=== PATIENT | female | born 1980 | race Caucasian/White ===

== ENCOUNTER 2016-12-09 19:21 | Emergency (ER) | payer BC ==
[2016-12-09 20:00] VITALS: BP 132/84
--- NOTE | 2016-12-09 20:16 | ED ---
Respiratory - HPI Summary HPI Summary: 35F presents with dry cough for 3 weeks. no sinus congestion. no fever. had history of childhood asthma. denies any acid reflux. no post nasal drip. cough is not getting any better and she gets SOB with it. she does not smoke. no history of CHF. no swelling in legs. no recent travel or on control. no chest pain. no abdominal pain, n/v. tried mucinex without relief. - History of Current Complaint Chief Complaint: UCRespiratory Stated Complaint: COUGH/CONGESTION Time Seen by Provider: 12/09/16 20:03 - Allergy/Home Medications Allergies/Adverse Reactions: Allergies Allergy/AdvReac Type Severity Reaction Status Date / Time No Known Allergies Allergy Verified 12/09/16 20:02 Home Medications: Home Medications Escitalopram (NF) [Lexapro 10 mg (NF)] 20 mg PO DAILY 12/09/16 [History Confirmed 12/09/16] buPROPion SR TAB* [Wellbutrin SR TAB*] 300 mg PO DAILY 12/09/16 [History Confirmed 12/09/16] PMH/Surg Hx/FS Hx/Imm Hx Endocrine/Hematology History: Denies: Hx Anticoagulant Therapy Respiratory History: Reports: Hx Asthma - childhood only - Surgical History Surgery Procedure, Year, and Place: cholecystectomy Infectious Disease History: Yes Infectious Disease History: Reports: Hx Shingles - 2012 Denies: Traveled Outside the [place] in Last 30 Days - Family History Known Family History: Positive: Respiratory Disease - Social History Alcohol Use: None Substance Use Type: Reports: None Smoking Status (MU): Never Smoked Tobacco Review of Systems Negative: Fever Negative: Chest Pain Positive: Shortness Of Breath, Cough All Other Systems Reviewed And Are Negative: Yes Physical Exam Triage Information Reviewed: Yes Vital Signs On Initial Exam: Initial Vitals Temp Pulse Resp BP Pulse Ox 98.2 F 86 18 132/84 100 12/09/16 19:55 12/09/16 19:55 12/09/16 19:55 12/09/16 19:55 12/09/16 19:55 Vital Signs Reviewed: Yes Appearance: Positive: Well-Appearing Skin: Positive: Warm, Dry Head/Face: Positive: Normal Head/Face Inspection Eyes: Positive: Normal, EOMI, CHASIDY, Conjunctiva Clear ENT: Positive: Normal ENT inspection, Pharynx normal, TMs normal Respiratory/Lung Sounds: Positive: Clear to Auscultation, Breath Sounds Present Cardiovascular: Positive: Normal, RRR Abdomen Description: Positive: Nontender, Soft Bowel Sounds: Positive: Present Musculoskeletal: Positive: Normal Neurological: Positive: Normal Psychiatric: Positive: Normal Diagnostics - Vital Signs Vital Signs Temp Pulse Resp BP Pulse Ox 12/09/16 19:55 98.2 F 86 18 132/84 100 - Laboratory Lab Statement: Any lab studies that have been ordered have been reviewed, and results considered in the medical decision making process. - Radiology chest Xray Interpretation: No Acute Changes Radiology Interpretation Completed By: Radiologist Disposition - Course Course Of Treatment: 35F presents with dry cough for 3 weeks. no sinus congestion. no fever. had history of childhood asthma. denies any acid reflux. no post nasal drip. cough is not getting any better and she gets SOB with it. she does not smoke. no history of CHF. no swelling in legs. no recent travel or on control. no chest pain. no abdominal pain, n/v. tried mucinex without relief. lungs CTA. chest xray normal. diff: GERD, bronchitis, CHF, asthma. will treat as bronchitis at this point and have follow up with primary about this and blood pressure being elevated. patient understands and agrees with plan. - Differential Dx - Cardiopulmonary Differential Diagnoses - Cardiopulmonary: Asthma, Bronchitis, CHF, Lower Resp Infection - Diagnoses Provider Diagnoses: Cough Discharge - Discharge Plan Condition: Good Disposition: HOME Prescriptions: Albuterol HFA INHALER* [Ventolin HFA Inhaler*] 1 puff INH Q6H PRN #1 mdi PRN Reason: Cough Patient Education Materials: Acute Cough (ED) Referrals: Jenn Ramírez MD [Primary Care Provider] - Additional Instructions: Take inhaler every 6 hours as needed for shortness of breath Start allergy medication such as zytrec once a day Follow up with primary within 7 days Return to urgent care if develop any new or worsening symptoms
--- NOTE | 2016-12-09 20:27 | RAD ---
INDICATION: Cough. Short of breath. COMPARISON: None TECHNIQUE: PA and lateral dual-energy views were obtained. FINDINGS: Bones/Soft Tissues: There are no acute bony findings. Cardiomediastinal: The cardiomediastinal silhouette is normal. Lungs: There are no infiltrates. Pleura: There are no pleural effusions. Other: None IMPRESSION: NEGATIVE EXAMINATION.
[2016-12-09] MEDS ORDERED: Albuterol HFA INHALER* 8 gm MDI INH ONE (20:40)
== END 2016-12-09 20:49 | disposition home or self-care (01) ==
LOC: UCCORT 19:21
DX: R05 Cough (principal)
CPT/HCPCS: 71020; 99202; A9270-GY; G0463

== ENCOUNTER 2017-07-07 08:34 | Emergency (ER) | payer BC ==
[2017-07-07 08:55] VITALS: BP 146/103
--- NOTE | 2017-07-07 09:11 | UC ---
Throat Pain/Nasal Luis Armando HPI - HPI Summary HPI Summary: Sore throat for about two days. Worse today. Mild cough. No fever or Strep throat/sick contacts. She has anxiety/depression but no medical problems. No hx of HTN. Generally at pcp office BP is controlled. No rashes, vomiting, nausea. - History of Current Complaint Chief Complaint: UCRespiratory Stated Complaint: ST Time Seen by Provider: 07/07/17 08:58 Hx Obtained From: Patient Hx Last Menstrual Period: 06/01/17 Onset/Duration: Gradual Onset, Lasting Days Severity: Moderate Pain Intensity: 6 Cough: Nonproductive Associated Signs & Symptoms: Positive: Dysphagia. Negative: Nasal Discharge, Fever, Vomiting, Rash - Epiglottits Risk Factors Epiglottis Risk Factors: Negative - Allergies/Home Medications Allergies/Adverse Reactions: Allergies Allergy/AdvReac Type Severity Reaction Status Date / Time No Known Allergies Allergy Verified 07/07/17 08:55 PMH/Surg Hx/FS Hx/Imm Hx Previously Healthy: No - depression, anxiety. Other History Of: Negative For: Anticoagulant Therapy - Surgical History Surgical History: Yes Surgery Procedure, Year, and Place: cholecystectomy - Family History Known Family History: Positive: Respiratory Disease - Social History Occupation: Employed Full-time Alcohol Use: None Substance Use Type: None Smoking Status (MU): Never Smoked Tobacco Review of Systems ENT: Sore Throat Respiratory: Cough All Other Systems Reviewed And Are Negative: Yes Physical Exam Triage Information Reviewed: Yes Appearance: Well-Appearing, Obese Vital Signs: Initial Vital Signs Temp 99.2 F 07/07/17 08:48 Pulse 94 07/07/17 08:48 Resp 18 07/07/17 08:48 BP 146/103 07/07/17 08:48 Pulse Ox 100 07/07/17 08:48 Vital Signs Reviewed: Yes Eyes: Positive: Conjunctiva Clear ENT: Positive: Normal ENT inspection, Pharyngeal erythema, TMs normal, Uvula midline. Negative: Nasal congestion, Nasal drainage, TM bulging, TM dull, TM red, Tonsillar swelling, Tonsillar exudate, Trismus, Muffled voice, Hoarse voice , Sinus tenderness Neck: Positive: Supple, Nontender, No Lymphadenopathy Respiratory: Positive: Chest non-tender, Lungs clear, Normal breath sounds, No respiratory distress, No accessory muscle use. Negative: Respiratory distress, Decreased breath sounds, Accessory muscle use, Crackles, Rhonchi, Stridor, Wheezing Cardiovascular: Positive: RRR, No Murmur, Pulses Normal Abdomen Description: Positive: Nontender, No Organomegaly, Soft. Negative: Distended, Guarding Musculoskeletal: Positive: Strength Intact, ROM Intact, No Edema Neurological: Positive: Alert, Muscle Tone Normal. Negative: Fatigued Skin: Negative: rashes Throat Pain/Nasal Course/Dx - Course Course Of Treatment: sore throat without any clinical findings of strep throat not any risk factors or variables of the history that suggest Strep throat. We agreed to treat supportively. HTn is not normally a problem for her. SHe agrees to f/u with pcp and to go to pharmacy and check a few BP and write them down for Pcp to review. Repeat BP now to be obtained. - Differential Dx/Diagnosis Differential Diagnosis/HQI/PQRI: Influenza, Laryngitis, Justen's Angina, Mononucleosis, Otitis Media, Peritonsillar Abscess, Pharyngitis, Sinusitis, Tonsillitis, URI Provider Diagnoses: htn. viral pharyngitis. Discharge - Sign-Out/Discharge Documenting (check all that apply): Discharge/Admit/Transfer - Discharge Plan Condition: Good Disposition: HOME Patient Education Materials: Chronic Hypertension (ED), Pharyngitis (ED) Forms: *Work Release Referrals: Jenn Ramírez MD [Primary Care Provider] - 1 Week - Billing Disposition and Condition Condition: GOOD Disposition: HOME
== END 2017-07-07 09:24 | disposition home or self-care (01) ==
LOC: UCCORT 08:34
DX: J02.8 Acute pharyngitis due to other specified organisms (principal); I10 Essential (primary) hypertension; E66.9 Obesity, unspecified; B97.89 Other viral agents as the cause of diseases classified elsewhere
CPT/HCPCS: 99211; G0463

== ENCOUNTER 2018-03-18 08:29 | Emergency (ER) | payer BC ==
--- OUTSIDE RECORDS SUMMARY | 2018-03-18 08:39 | XMS REPORT | Continuity of Care Document ---
:1980 External Reference #:[id number] Author Name Carolyn Rosa, FUNMI MS CHOIR DIRECTOR Address [address] [place] [address] Care Team Providers Name Role Phone Carolyn Rosa RN MS CHOIR DIRECTOR Care Team Information Mobile Application Tester Unavailable Payers Type Date Identification Numbers Payment Provider Subscriber Effective: 2011 Policy Number: [id number] Commercial Jonas Siddiqui PayID: [id number] [address] [address] [place] [address] Advance Directives Description No Information Available Problems Date Description Provider Status Onset: 08/04/2011 Blood chemistry abnormal Carolyn Rosa RN MS CHOIR DIRECTOR Active Onset: 08/04/2011 Morbid obesity Carolyn Rosa RN MS CHOIR DIRECTOR Active Onset: 08/04/2011 Vitamin D deficiency Carolyn Rosa RN MS CHOIR DIRECTOR Active Onset: 07/25/2014 Generalized anxiety disorder Jenn Esquivel MD Active Family History Date Family Member(s) Problem(s) Comments Father Hypercholesterolemia Father Hypertension Mother Good Health Paternal Grandmother Cancer, Breast Maternal Grandmother due to Cancer, Lung () Social History Type Date Description Comments Sex Unknown Marital Status 2 kids 2017 Occupation Homemaker Occupation Currently Working [employer] in [employer] Tobacco Use Start: Unknown Never Smoked Cigarettes ETOH Use Rarely consumes alcohol Tobacco Use Start: Unknown Patient has never smoked Smoking Status Reviewed: 02/17/18 Patient has never smoked Allergies, Adverse Reactions, Alerts Description No Known Drug Allergies Medications Medication Date Status Form Strength Qnty SIG Indications Ordering Provider Propranolol Active Tablets 20mg 60tabs take 1 I10 KLAUDIA Rosa 019 tablet by Carolyn Hayward, mouth two RN MS CHOIR DIRECTOR times daily Bupropion HCL Active Tablets 150mg 60tabs take 2 F32.1 Shelley, ER (XL) 019 ER 24HR tablet by Carolyn C, mouth every RN MS CHOIR DIRECTOR morning, gradually decrease to 1 a day as tolerated F33.9 [facility] 09/01/2017 Active Capsules 50-325-40mg 60caps take one G43.009 Shelley, to two Carolyn capsules C, RN MS by mouth CHOIR DIRECTOR three times a day as needed, for migraine , maximum daily dose=6 capsules Amlodipine Besylate 09/01/2017 Active Tablets 10mg 90tabs 1 by I10 Shelley, mouth Carolyn every day C, RN MS CHOIR DIRECTOR Cpap 07/15/2017 Active 9CM dx: deepthi ? Alvin, full face Jenn mask-ally Hewitt MD ew options Dental Evaluation 07/13/2017 Active for G47.33 Alvin, mad/oat Jenn Dx: MD Marcelina Severe deepthi, Duloxetine HCL 12/14/[address] 60mg 30caps Take One F41.1 Alvin, Part Capsule Jenn By Mouth MD Marcelina Every Day Alprazolam 07/25/2014 Hx Tablets 0.25mg 10tabs 1/2-1 by F41.1 Shelley, - mouth Carolyn 03/17/2018 three FUNMI Hayward MS times a CHOIR DIRECTOR day as needed anxiety/i nsomnia Vitamin D3 03/08/2014 Active Capsules 2000Unit 1 by E55.9 Alvin, mouth Jenn every day MD Marcelina Out Of Work 09/01/2017 Hx for G43.009 Shelley, - medical Carolyn 09/17/2017 reasons ( C, RN MS migraine) CHOIR DIRECTOR 08/31, 09/01, 09/02, may return to work on 09/03. to full duty Amitriptyline HCL 09/01/2017 Hx Tablets 50mg 90tabs take one G43.009 Shelley, - tablet by Carolyn 09/17/2017 mouth at C, RN MS bedtime CHOIR DIRECTOR Amlodipine Besylate 07/13/2017 Hx Tablets 5mg 30tabs 1 by I10 Alvin, - mouth Jenn 09/01/2017 every day MD Marcelina Amoxicillin 07/08/2017 Hx Tablets 500mg 21tabs 1 by Alvin, - mouth Jenn 07/08/2017 three MD Marcelina times a day Amoxicillin/Clavulanate 01/26/2017 Hx Tablets 875-125mg 20tabs 1 by Alvin Potassium - mouth Jenn 07/08/2017 twice a M, day Azithromycin 12/14/2016 Hx Tablets 250mg 6tabs 2 tabs R06.2 Alvin, - day one Jenn 01/22/2017 and 1 tab MD Marcelina daily till gone Duloxetine HCL 12/14/[address] 30mg 7caps 1 by F41.1 Alvin, - Part mouth Jenn 07/13/2017 every day MD Marcelina Bupropion HCL ER (XL) 12/17/2014 Hx Tablets 150mg 7tabs take one F32.1 Alvin, - ER 24HR tablet by Jenn 01/29/2015 mouth MD Marcelina every morning Amoxicillin 12/17/2014 Hx Tablets 875mg 20tabs 1 by J20.9 Alvin, - mouth Jenn 01/29/2015 twice a M, day Bupropion HCL ER (XL) 12/17/2014 Hx Tablets 300mg 30tabs take one F32.1 Alvin, - ER 24HR tablet by Jenn 02/17/2018 mouth MD Marcelina every day Cipro 09/17/2014 Hx Tablets 250mg 6tabs 1 by R35.0 Alvin, - mouth Jenn 12/17/2014 twice a M, day x 3 d Escitalopram Oxalate 07/25/2014 Hx Tablets 20mg 30tabs Take One F41.1 Alvin, - Tablet By Jenn 12/14/2016 Mouth MD Marcelina Every Day Pyridium 06/29/2014 Hx Tablets 100mg 30tabs 1 by 595.0 Alvin, - mouth Jenn 12/17/2014 three MD Marcelina times a day as needed Escitalopram Oxalate 06/29/2014 Hx Tablets 10mg 30tabs 1/2 po qd 300.02 Alvin, - x 4 d Jenn 07/25/2014 then by MD Marcelina mouth every day Vitamin D (Ergocalciferol) 03/08/2014 Hx Capsules [id number] 8caps 1 by Alvin - mouth qwk Jenn 06/29/2014 x 8 wks MD Marcelina Diflucan 01/17/2014 Hx Tablets 150mg 1tabs 1 by 616.10 [place], - mouth Jenn 07/25/2014 every day MD Marcelina Cipro 01/17/2014 Hx Tablets 250mg 6tabs 1 by 595.0 [place], - mouth Jenn 06/29/2014 twice a MD Marcelina day x 3 days No Active Medications 06/07/2013 Hx Unknown - 06/07/2013 Amoxicillin 06/07/2013 Hx Tablets 875mg 28tabs 1 po bid 461.0 Shelley, - Carolyn 01/19/2014 FUNMI Hayward MS CHOIR DIRECTOR Benadryl 06/07/2013 Hx Capsules 25mg 1-2 hs 786.2 Shelley, - prn Cough Carolyn 06/14/2013 FUNMI Hayward MS CHOIR DIRECTOR Famvir 04/14/2013 Hx Tablets 500mg 21tabs one tab 053.29 Shelley, - by mouth 06/07/2013 tid x 7 FUNMI Hayward MS days CHOIR DIRECTOR Lidoderm 04/14/2013 Hx Patches 5% Samples apply 053.29 Shelley, - patch Carolyn 06/07/2013 daily as FUNMI Hayward MS directed. CHOIR DIRECTOR leave on for 12 hours/day only. june cut to fit tender area. No Active Medications 04/12/2013 Hx Unknown - 04/14/2013 No Active Medications 03/16/2013 Hx Unknown - 03/16/2013 Cipro 03/16/2013 Hx Tablets 250mg 6tabs 1 po bid 599.0 Shelley, - x 3 days 04/12/2013 FUNMI Hayward MS CHOIR DIRECTOR Proair HFA 02/01/2013 Hx Aerosol 108(90Base) 1units 2 Shelley, - mcg/Act inhalatio Carolyn 03/16/2013 ns by FUNMI Hayward MS mouth tid CHOIR DIRECTOR as needed for wheezing No Work For Medical Reasons 02/01/2013 Hx all this Shelley, - week Carolyn 03/16/2013 FUNMI Hayward MS CHOIR DIRECTOR No Active Medications 01/25/2013 Hx Unknown - 01/25/2013 Amoxicillin 01/25/2013 Hx Tablets 875mg 20tabs 1 po bid 461.8 Shelley, - x ten 03/16/2013 days FUNMI Hayward MS CHOIR DIRECTOR No Active Medications 09/07/2012 Hx Unknown - 09/07/2012 Cephalexin 09/07/2012 Hx Tablets 500mg 30tabs 1 tid for 682.8 Shelley, - 10 days Carolyn 01/25/2013 C, RN MS CHOIR DIRECTOR Clarithromycin 05/17/2012 Hx Tablets 500mg 28tabs 1 po bid 461.0 [place], - x 14 d Jenn 09/07/2012 MD Marcelina Bactrim DS 01/29/2012 Hx Tablets 800-160mg 14tabs 1 po bid [place], - X 7 D Jenn 05/17/2012 MD Marcelina Ciprofloxacin HCL 01/25/2012 Hx Tablets 250mg 6tabs 1 po bid 599.0 [place], - Jenn 01/29/2012 MD Marcelina Nasonex 01/25/2012 Hx Suspensio 50mcg/Act 1Bottle 2 p bilat 381.81 [place], - n qd Jenn 09/07/2012 MD Marcelina Cipro 05/28/2011 Hx Tablets 250mg 6tabs 1 po bid 599.0 [place], - x 3 days Carolyn 06/07/2011 Yesy RN MS CHOIR DIRECTOR Ceftin 11/25/2009 Hx Tablets 500mg 42tabs 1 po bid [place], - Jenn 05/28/2011 MD Marcelina Work Note 11/18/2009 Hx pt june Macamariaa, - rtw 11/17 Jenn 11/29/2009 w/O MD Marcelina restricti ons Work Note 11/08/[address] excuse 784.0 [place], - from work Jenn 11/18/2009 until MD Marcelina 11/18 Ciprofloxacin HCL 06/13/2009 Hx Tablets 250mg 6tabs 1 po bid 599.0 Shelley, - till gone Carolyn 06/23/2009 Yesy, RN MS CHOIR DIRECTOR Amoxicillin 05/24/2009 Hx Tablets 875mg 20tabs 1 po bid 463 [place], - Jenn 06/13/2009 MD Marcelina Sulfamethoxazole-TMP DS 02/12/2009 Hx 1 PO bid 788.41 Shelley, - for 7 Carolyn 02/19/2009 days C RN MS CHOIR DIRECTOR Phenazopyridine HCL 02/12/2009 Hx 9units 1 tab PO 788.41 Shelley, - tid as Carolyn 02/12/2009 needed C RN MS for CHOIR DIRECTOR urinary pain Phenazopridine 02/12/2009 Hx 100 9units tid for Shelley, - urinary Carolyn 06/23/2009 pain C, RN MS CHOIR DIRECTOR Bactrim DS 11/28/2008 Hx Tablets 800-160mg 14tabs one tab 599.0 Shelley, - po bid Carolyn 12/18/2008 for 7 C, RN MS days CHOIR DIRECTOR Prilosec OTC 09/11/2008 Hx Tablets 20mg 30tabs 1 po qd 789.06 [place], - DR Jenn 10/01/2008 MD Marcelina Vitamin D 08/28/2008 Hx Capsules [id number] 8caps 1 po qwk Shelley, - x 8 wks Carolyn 05/24/2009 C, RN MS CHOIR DIRECTOR Vitamin D 08/28/2008 Hx Capsules 1000Unit 1 po qd [place], - Jenn 05/28/2011 MD Marcelina Sertraline HCL 08/27/2008 Hx Tablets 50mg 30tabs 1/2 po qd 296.32 [place], - x 6 d Jenn 09/11/2008 then 1 po MD Marcelina qd Xanax 08/27/2008 Hx Tablets 0.25mg 12tabs one 296.32 [place], - half-two [facility] 09/11/2008 po tid MD Marcelina prn anxiety Macrobid 01/06/2008 Hx Capsules 100mg 14caps 1 po bid 595.0 [place], - as dir Carolyn 03/01/2008 C, RN MS CHOIR DIRECTOR Amoxicillin 02/28/2007 Hx Tablets 875mg 20tabs 1 PO bid 461.0 [place], - Jenn 04/11/2007 MD Marcelina Cipro 01/13/2007 Hx Tablets 250mg 6tabs 1 PO bid 599.0 [place], - X 3 Days Carolyn 01/19/2007 C, RN MS CHOIR DIRECTOR Entex Pse 06/01/2006 Hx Tablets 600mg;120 mg 20tabs one tab 462 [place], - qd in am Carolyn 07/26/2006 for sinus C, RN MS congestio CHOIR DIRECTOR n Zithromycin 06/01/2006 Hx Tablets 250mg 6Tabs 2 tabs 462 [place], - day one, Carolyn 07/26/2006 one tab C, RN MS days 2-5 CHOIR DIRECTOR Cipro 05/10/2006 Hx Tablets 250mg 6tabs 1 po bid 599.0 [place], - Jenn 06/01/2006 MD Marcelina Z Pack 02/24/2006 Hx 1Pack as Dir 461.0 Addis Esquivel 05/10/2006 MD Marcelina Bactrim DS 11/11/2005 Hx Tablets 160mg;800 mg 14tabs 1 PO bid 599.0 Addis Rosa 11/25/2005 Yesy RN MS CHOIR DIRECTOR Zoloft 11/02/2005 Hx Tablets 75mg 30tabs 1 po qd Addis Esquivel 07/26/2006 MD Marcelina Anaprox DS 03/06/2005 Hx Tablets 550mg 60tabs 1 PO Q 12 [place], - HRS Mashelle 08/03/2005 , N.P. Flexeril 03/06/2005 Hx Tablets 10mg 30tabs 1 PO tid [place], - Mashelle 08/03/2005 , N.P. Immunizations CPT Code Status Date Vaccine Lot # [id number] Given 07/13/2017 Tdap (Adacel) Ages 7 And Above Only [id number] Given 02/12/2009 Influenza Virus Vaccine Pandemic Formulation - [id number] Given 02/12/2009 Administration Swine Flu Vaccine [id number] Refused 12/14/2016 Influenza Vac, Quadrivalent, Split, 0.5mL Dosage, Im Use Vital Signs Date Vital Result Comment 02/17/2018 7:42am Weight 267.00 lb Heart Rate 84 /min BP Systolic 131 mmHg BP Diastolic 89 mmHg Height 66.5 inches 5'6.50" BMI (Body Mass Index) 42.4 kg/m2 09/17/2017 1:21pm Weight 265.25 lb Heart Rate 72 /min BP Systolic 128 mmHg BP Diastolic 86 mmHg Height 66.5 inches 5'6.50" BMI (Body Mass Index) 42.2 kg/m2 09/01/2017 10:57am Weight 266.50 lb Heart Rate 86 /min BP Systolic 155 mmHg BP Diastolic 109 mmHg Height 66.5 inches 5'6.50" BMI (Body Mass Index) 42.4 kg/m2 07/13/2017 1:52pm Weight 268.00 lb Heart Rate 84 /min BP Systolic 150 mmHg BP Diastolic 110 mmHg Height 66.5 inches 5'6.50" BMI (Body Mass Index) 42.6 kg/m2 12/14/2016 4:03pm Weight 281.00 lb Heart Rate 56 /min BP Systolic 128 mmHg BP Diastolic 78 mmHg Height 66.5 inches 5'6.50" BMI (Body Mass Index) 44.7 kg/m2 01/29/2015 8:59am Weight 274.00 lb Heart Rate 60 /min BP Systolic 122 mmHg BP Diastolic 82 mmHg Height 66.5 inches 5'6.50" BMI (Body Mass Index) 43.6 kg/m2 12/17/2014 1:08pm Body Temperature 97.6 F Weight 275.00 lb Heart Rate 76 /min BP Systolic 126 mmHg BP Diastolic 86 mmHg Height 66.5 inches 5'6.50" BMI (Body Mass Index) 43.7 kg/m2 09/17/2014 1:04pm Weight 263.00 lb Heart Rate 80 /min BP Systolic 110 mmHg BP Diastolic 80 mmHg Height 66.5 inches 5'6.50" BMI (Body Mass Index) 41.8 kg/m2 07/25/2014 11:27am Weight 260.00 lb Heart Rate 76 /min BP Systolic 110 mmHg BP Diastolic 78 mmHg Height 66.5 inches 5'6.50" BMI (Body Mass Index) 41.3 kg/m2 06/29/2014 10:16am Weight 266.00 lb Heart Rate 64 /min BP Systolic 137 mmHg BP Diastolic 84 mmHg Height 66.5 inches 5'6.50" BMI (Body Mass Index) 42.3 kg/m2 03/06/2014 9:50am Body Temperature 97.3 F Weight 271.00 lb Heart Rate 68 /min BP Systolic 120 mmHg BP Diastolic 76 mmHg Height 66.5 inches 5'6.50" BMI (Body Mass Index) 43.1 kg/m2 01/17/2014 3:43pm Body Temperature 98.2 F Weight 271.25 lb Heart Rate 74 /min BP Systolic 129 mmHg BP Diastolic 91 mmHg Height 66.5 inches 5'6.50" BMI (Body Mass Index) 43.1 kg/m2 06/07/2013 2:11pm Body Temperature 97.4 F Weight 269.00 lb Heart Rate 76 /min BP Systolic 120 mmHg BP Diastolic 80 mmHg Height 66.5 inches 5'6.50" BMI (Body Mass Index) 42.8 kg/m2 04/14/2013 10:02am Heart Rate 67 /min BP Systolic 131 mmHg BP Diastolic 87 mmHg 04/12/2013 1:48pm Weight 267.00 lb Heart Rate 70 /min BP Systolic 131 mmHg BP Diastolic 82 mmHg 03/16/2013 2:32pm Weight 265.00 lb Heart Rate 73 /min BP Systolic 139 mmHg BP Diastolic 96 mmHg 01/25/2013 2:38pm Body Temperature 97.4 F Weight 260.00 lb Heart Rate 77 /min BP Systolic 128 mmHg BP Diastolic 88 mmHg 09/07/2012 10:21am Weight 261.00 lb Heart Rate 68 /min BP Systolic 121 mmHg BP Diastolic 80 mmHg Height 66.5 inches 5'6.50" BMI (Body Mass Index) 41.5 kg/m2 05/17/2012 8:07am Body Temperature 98.2 F Weight 264.00 lb Heart Rate 88 /min BP Systolic 114 mmHg BP Diastolic 88 mmHg Height 66.5 inches 5'6.50" BMI (Body Mass Index) 42.0 kg/m2 01/25/2012 11:51am Body Temperature 97.6 F Weight 264.00 lb Heart Rate 60 /min BP Systolic 120 mmHg BP Diastolic 62 mmHg 08/04/2011 1:17pm Weight 264.00 lb Heart Rate 82 /min BP Systolic 119 mmHg BP Diastolic 74 mmHg Height 66.5 inches 5'6.50" BMI (Body Mass Index) 42.0 kg/m2 05/28/2011 4:22pm Weight 264.00 lb Heart Rate 62 /min BP Systolic 120 mmHg BP Diastolic 76 mmHg 11/29/2009 3:26pm Weight 248.00 lb Heart Rate 80 /min BP Systolic 110 mmHg BP Diastolic 72 mmHg 11/08/2009 3:56pm Weight 249.00 lb Heart Rate 76 /min BP Systolic 116 mmHg BP Diastolic 82 mmHg 06/13/2009 9:56am Body Temperature 97.0 F Weight 257.00 lb Heart Rate 80 /min BP Systolic 132 mmHg BP Diastolic 82 mmHg 05/24/2009 1:38pm Weight 259.00 lb Heart Rate 72 /min BP Systolic 114 mmHg BP Diastolic 86 mmHg 02/12/2009 10:31am Body Temperature 97.7 F Weight 246.00 lb Heart Rate 69 /min BP Systolic 125 mmHg BP Diastolic 80 mmHg Urine Dipstick - Blood 1+ WBC Only Urine Dipstick - Protein NEGATIVE Urine Dipstick - Glucose NEGATIVE 11/28/2008 2:46pm Weight 238.00 lb Heart Rate 81 /min BP Systolic 128 mmHg BP Diastolic 85 mmHg 10/01/2008 4:44pm Weight 220.00 lb Heart Rate 64 /min BP Systolic 120 mmHg BP Diastolic 80 mmHg 09/11/2008 2:48pm Weight 226.00 lb Heart Rate 76 /min BP Systolic 110 mmHg BP Diastolic 68 mmHg 08/27/2008 9:18am Weight 222.00 lb Heart Rate 60 /min BP Systolic 120 mmHg BP Diastolic 80 mmHg 04/02/2008 5:22pm Weight 249.00 lb Heart Rate 80 /min BP Systolic 110 mmHg BP Diastolic 80 mmHg 02/23/2008 2:00pm Body Temperature 98.0 F Weight 249.00 lb Heart Rate 87 /min BP Systolic 150 mmHg BP Diastolic 81 mmHg 01/06/2008 12:31pm Body Temperature 96.7 F Weight 250.00 lb Heart Rate 80 /min BP Systolic 116 mmHg BP Diastolic 80 mmHg 09/30/2007 8:11am Weight 249.00 lb Heart Rate 80 /min BP Systolic 128 mmHg BP Diastolic 84 mmHg 05/30/2007 5:51pm Weight 251.00 lb Heart Rate 70 /min BP Systolic 119 mmHg BP Diastolic 78 mmHg 04/11/2007 6:00pm Weight 249.00 lb Heart Rate 66 /min BP Systolic 119 mmHg BP Diastolic 79 mmHg 02/28/2007 5:09pm Weight 247.00 lb Heart Rate 76 /min BP Systolic 120 mmHg BP Diastolic 80 mmHg 01/13/2007 9:43am Body Temperature 97.1 F Weight 243.00 lb Heart Rate 73 /min BP Systolic 143 mmHg BP Diastolic 80 mmHg 07/26/2006 4:06pm Weight 241.00 lb Heart Rate 60 /min BP Systolic 118 mmHg BP Diastolic 88 mmHg 06/01/2006 3:10pm Body Temperature 97.4 F Weight 243.00 lb Heart Rate 90 /min BP Systolic 112 mmHg BP Diastolic 82 mmHg 05/10/2006 6:21pm Body Temperature 97.0 F Weight 248.00 lb Heart Rate 72 /min BP Systolic 118 mmHg BP Diastolic 8 mmHg 02/24/2006 1:35pm Body Temperature 97.5 F Weight 243.00 lb Heart Rate 76 /min BP Systolic 118 mmHg BP Diastolic 80 mmHg 02/01/2006 5:35pm Weight 239.00 lb Heart Rate 64 /min BP Systolic 118 mmHg BP Diastolic 80 mmHg 11/11/2005 11:55am Body Temperature 97.7 F Weight 231.00 lb Heart Rate 70 /min BP Systolic 114 mmHg BP Diastolic 70 mmHg 11/02/2005 6:26pm Weight 230.00 lb Heart Rate 68 /min BP Systolic 110 mmHg BP Diastolic 78 mmHg 08/03/2005 5:47pm Weight 231.00 lb Heart Rate 76 /min BP Systolic 118 mmHg BP Diastolic 82 mmHg 03/06/2005 9:44am Body Temperature 97.4 F Weight 229.00 lb Heart Rate 68 /min BP Systolic 124 mmHg BP Diastolic 80 mmHg Results Test Date Facility Test Result H/L Range Note Laboratory test finding 07/13/2017 [facility] TSH 2.93 uIU/mL 0.35-4.94 1 Free T4 1.08 ng/dL 0.70-1.48 Vitamin D 25 Hydroxy 17 ng/mL Low 30-100 2 Magnesium 2.3 mg/dL 1.5-2.7 Ferritin 70.8 ng/ml 11.0-306.0 CBC With Auto Diff 07/13/2017 [facility] WBC 11.2 K/uL High 4.1-11.0 RBC 4.97 M/uL 4.00-5.40 Hemoglobin 15.4 gm/dL 12.0-16.0 Hematocrit 44.4 % 36.0-47.0 MCV 89.4 fL 80.0-97.0 MCH 31.0 pg 27.0-32.0 MCHC 34.7 g/dL 32.0-36.0 RDW 13.8 % 11.5-14.5 PLT Count 377 K/ul 140-400 MPV 8.4 FL 7.1-10.7 Neutrophil 62.1 % 35.0-75.0 Lymphocyte 29.5 % 16.0-52.0 Monocyte 5.5 % 2.0-10.0 Eosinophil 2.5 % 0.0-5.0 Basophil 0.4 % 0.0-4.0 Abs Neutrophils 6.9 K/uL 2.1-8.0 Abs Lymphocytes 3.3 K/uL 0.8-5.5 Abs Monocytes 0.6 K/uL 0.1-1.0 Abs Eosinophils 0.3 K/uL 0.0-0.5 Abs Basophils 0.0 K/uL 0.0-0.3 Comprehensive Met Panel-[facility] 07/13/2017 [facility] Sodium 141 mmol/L 135- 146 3 Potassium 3.7 mmol/L 3.5-5.2 Chloride# 104 mmol/L 97-110 4 Carbon Dioxide 23 mmol/L Low 24-34 Glucose 89 mg/dL 70-105 BUN 8 mg/dL 6-26 Creatinine 1.0 mg/dL 0.5-1.4 Calcium 9.8 mg/dL 8.5-10.2 Total Protein 7.5 g/dL 6.0-8.0 Albumin 4.6 g/dL 3.6-4.9 Globulin 2.9 g/dL 2.0-3.5 A/G Ratio 1.6 Ratio 1.0-2.2 Total Bilirubin 0.8 mg/dL 0.1-1.3 Alkaline Phosphatase 131 U/L 24-140 Alt 43 U/L High 3-42 Ast 32 U/L 8-42 Cindy Egfr >60 >60 5 Non Cindy Egfr >60 >60 6 Anion Gap 14 mmol/L 5-15 7 Lipid [facility] Cholesterol 184 mg/dL 50-199 Triglycerides 168 mg/dL 30-200 HDL 42 mg/dL 35-85 8 Chol/ HDL Ratio 4.4 ratio 3.7-5.6 VLDL 34 mg/dL High 2-29 LDL (Calc) 109 mg/dL High 20-99 9 Laboratory test finding 01/29/2015 [facility] Ferritin 23.0 ng/ml 11.0- 306.0 Vit D,25 Hydroxy 34 ng/mL 31-100 Hepatitis Prof Acute-RL 01/29/2015 [facility] Hep[facility] B S Ag @ NEGATIVE ( Neg) Hep. B Core Igm @ NEGATIVE (Neg) Hepatitis A AB Igm @ NEGATIVE (Neg) Hepatitis C AB @ NEGATIVE (Neg) 10 CBC With Auto Diff 01/29/2015 [facility] WBC 7.5 K/uL 4.1-11.0 RBC 4.57 M/uL 4.00-5.40 Hemoglobin 13.9 gm/dL 12.0-16.0 Hematocrit 41.5 % 36.0-47.0 MCV 90.9 fL 80.0-97.0 MCH 30.3 pg 27.0-32.0 MCHC 33.4 g/dL 32.0-36.0 RDW 14.5 % 11.5-14.5 PLT Count 283 K/ul 140-400 Neutrophil 59.6 % 35.0-75.0 Lymphocyte 31.4 % 16.0-52.0 Monocyte 5.2 % 2.0-10.0 Eosinophil 2.8 % 0.0-5.0 Basophil 1.0 % 0.0-4.0 Abs Neutrophils 4.4 K/uL 2.1-8.0 Abs Lymphocytes 2.3 K/uL 0.8-5.5 Abmon 0.4 K/uL 0.1-1.0 Abs Eosinophils 0.2 K/uL 0.0-0.5 Abs Basophils 0.1 K/uL 0.0-0.3 Comprehensive Metabolic (CMP) 01/29/2015 [facility] Sodium 136 mmol/L 134- 142 Potassium 4.6 mmol/L 3.5-5.2 Chloride 104 mmol/L 97-109 Carbon Dioxide 25 mmol/L 24-34 Glucose 79 mg/dL 70-105 BUN 9 mg/dL 6-26 Creatinine 0.9 mg/dL 0.5-1.4 Calcium 9.4 mg/dL 8.5-10.2 Total Protein 6.9 g/dL 6.0-8.0 Albumin 4.1 g/dL 3.6-4.9 Globulin 2.8 g/dL 2.0-3.5 A/G Ratio 1.5 Ratio 1.0-2.2 Total Bilirubin 0.6 mg/dL 0.1-1.3 Alkaline Phosphatase 115 U/L 24-140 Alt 19 U/L 3-42 Ast 20 U/L 8-42 Anion Gap 12 mmol/L 6-14 Cindy Egfr >60 >60 11 Non Cindy Egfr >60 >60 12 Lipid 01/29/2015 [facility] Cholesterol 165 mg/dL 50-199 Triglycerides 123 mg/dL 30-200 HDL 39 mg/dL 35-85 13 Chol/ HDL Ratio 4.2 ratio 3.7-5.6 VLDL 25 mg/dL 2-29 LDL (Calc) 101 mg/dL High 20-99 14 CBC With Auto Diff 07/25/2014 [facility] WBC 8.5 K/uL 4.1-11.0 RBC 4.72 M/uL 4.00-5.40 Hemoglobin 14.0 gm/dL 12.0-16.0 Hematocrit 41.6 % 36.0-47.0 MCV 88.1 fL 80.0-97.0 MCH 29.7 pg 27.0-32.0 MCHC 33.7 g/dL 32.0-36.0 RDW 13.2 % 11.5-14.5 PLT Count 319 K/ul 140-400 Neutrophil 65.0 % 35.0-75.0 Lymphocyte 25.0 % 16.0-52.0 Monocyte 7.9 % 2.0-10.0 Eosinophil 1.3 % 0.0-5.0 Basophil 0.8 % 0.0-4.0 Abs Neutrophils 5.5 K/uL 2.1-8.0 Abs Lymphocytes 2.1 K/uL 0.8-5.5 Abmon 0.7 K/uL 0.1-1.0 Abs Eosinophils 0.1 K/uL 0.0-0.5 Abs Basophils 0.1 K/uL 0.0-0.3 Comprehensive Metabolic (CMP) 07/25/2014 [facility] Sodium 140 mmol/L 134- 142 Potassium 4.7 mmol/L 3.5-5.2 Chloride 105 mmol/L 97-109 Carbon Dioxide 26 mmol/L 24-34 Glucose 84 mg/dL 70-105 BUN 8 mg/dL 6-26 Creatinine 0.9 mg/dL 0.5-1.4 Calcium 9.5 mg/dL 8.5-10.2 Total Protein 7.0 g/dL 6.0-8.0 Albumin 4.4 g/dL 3.6-4.9 Globulin 2.6 g/dL 2.0-3.5 A/G Ratio 1.7 Ratio 1.0-2.2 Total Bilirubin 0.9 mg/dL 0.1-1.3 Alkaline Phosphatase 99 U/L 24-140 Alt 60 U/L High 3-42 Ast 28 U/L 8-42 Anion Gap 14 mmol/L 6-14 Cindy Egfr >60 >60 15 Non Cindy Egfr >60 >60 16 Laboratory test finding 07/25/2014 [facility] TSH 2.58 uIU/mL 0.35-4.94 Free T4 0.89 ng/dL 0.70-1.48 Vit D,25 Hydroxy 30 ng/mL Low 31-100 Rout Urine W/ Micro -RL 06/29/2014 [facility] Color YELLOW Appearance CLEAR Spec Grav Urine 1.023 (1.003-1.030) PH Urine 6.5 (5.0-7.5) Leuk Esterase 2+ Abnormal (Neg) Nitrite Urine NEGATIVE (Neg) Protein Urine NEGATIVE (Neg) Glucose Urine NEGATIVE (Neg) Ketone Urine NEGATIVE (Neg) Urobilinogen 0.2 mg/dL (0-1.0) Bilirubin Urine NEGATIVE (Neg) Blood/HGB Urine 3+ Abnormal (Neg) Urine WBC 0-2 [HPF] (0-5) Urine RBC 0-2 [HPF] (0-2) Epithelial Cells 3+ [HPF] 17 Laboratory test 06/29/2014 [facility] Urine Culture Microbiology res 18 finding <SEE NOTE> Affirm 06/29/2014 [facility] Trichomonas Negative Negative Vaginalis Gardnerella Vaginalis Negative Negative Kailyn Species Negative Negative Basic (BMP) 03/06/2014 [facility] Sodium 138 mmol/L 134-142 Potassium 4.4 mmol/L 3.5-5.2 Chloride 105 mmol/L 97-109 Carbon Dioxide 27 mmol/L 24-34 Glucose 93 mg/dL 70-105 BUN 6 mg/dL 6-26 Creatinine 0.9 mg/dL 0.5-1.4 Calcium 9.3 mg/dL 8.5-10.2 Anion Gap 10 mmol/L 6-14 Non Cindy Egfr >60 >60 19 Cindy Egfr >60 >60 20 CBC With Auto Diff 03/06/2014 [facility] WBC 7.9 K/uL 4.1-11.0 RBC 4.85 M/uL 4.00-5.40 Hemoglobin 14.5 gm/dL 12.0-16.0 Hematocrit 43.2 % 36.0-47.0 MCV 89.1 fL 80.0-97.0 MCH 29.8 pg 27.0-32.0 MCHC 33.4 g/dL 32.0-36.0 RDW 14.4 % 11.5-14.5 PLT Count 274 K/ul 140-400 Neutrophil 63.9 % 35.0-75.0 Lymphocyte 29.4 % 16.0-52.0 Monocyte 4.6 % 2.0-10.0 Eosinophil 1.5 % 0.0-5.0 Basophil 0.6 % 0.0-4.0 Abs Neutrophils 5.0 K/uL 2.1-8.0 Abs Lymphocytes 2.3 K/uL 0.8-5.5 Abmon 0.4 K/uL 0.1-1.0 Abs Eosinophils 0.1 K/uL 0.0-0.5 Abs Basophils 0.0 K/uL 0.0-0.3 Laboratory test finding 03/06/2014 [facility] Ferritin 31.7 ng/ml 11.0- 306.0 Vit D,25 Hydroxy 23 ng/mL Low 31-100 Urine Culture Microbiology res <SEE NOTE> 21 Affirm 01/17/2014 [facility] Trichomonas Vaginalis Negative Negative Gardnerella Vaginalis Negative Negative Kailyn Species Negative Negative Affirm 03/16/2013 [facility] Trichomonas Vaginalis Negative Negative 22 Gardnerella Vaginalis Negative Negative Kailyn Species Negative Negative Laboratory test 03/16/2013 [facility] Urine Culture Microbiology res 23 finding <SEE NOTE> Celiac Disease 09/07/2012 [facility] Gliadin Peptide 5 units (<20) 24 Panel-RL Iga Gliadin Peptide Igg 4 units (<20) 25 Iga @ 235 mg/dL (71-374) Transglutaminase Iga 6 units (<20) 26 Transglutaminase Igg 4 units (<20) 27 Laboratory test 09/07/2012 [facility] Vit D,25 42 ng/mL 31-100 finding Hydroxy Laboratory test 01/25/2012 [facility] Urine Culture Microbiology res 28 finding <SEE NOTE> Laboratory test 08/04/2011 [facility] Urine Culture Microbiology res 29 finding <SEE NOTE> Laboratory test 08/04/2011 [facility] TSH 2.76 uIU/mL 0.34-5.60 finding Comprehensive 08/04/2011 [facility] Sodium 139 mmol/L 134-142 Metabolic (CMP) Potassium 4.4 mmol/L 3.5-5.2 Chloride 104 mmol/L 97-109 Carbon Dioxide 25 mmol/L 24-34 Glucose 90 mg/dL 70-105 BUN 9 mg/dL 6-26 Creatinine 1.0 mg/dL 0.5-1.4 Calcium 9.4 mg/dL 8.5-10.2 Total Protein 7.2 g/dL 6.0-8.0 Albumin 4.5 g/dL 3.6-4.9 Globulin 2.7 g/dL 2.0-3.5 A/G Ratio 1.7 Ratio 1.0-2.2 Total Bilirubin 0.6 mg/dL 0.1-1.3 Alkaline Phosphatase 115 U/L 24-140 Alt 22 U/L 3-42 Ast 22 U/L 8-42 Anion Gap 14 mmol/L 6-14 Cindy Egfr >60 >60 30 Non Cindy Egfr >60 >60 31 Laboratory test finding 08/04/2011 [facility] Ferritin 31.3 ng/ml 11.0- 306.0 Lipid 08/04/2011 [facility] Cholesterol 135 mg/dL 50-199 Triglycerides 111 mg/dL 30-200 HDL 38 mg/dL 35-85 32 Chol/ HDL Ratio 3.6 ratio Low 3.7-5.6 VLDL 22 mg/dL 2-29 LDL (Calc) 75 mg/dL 20-129 33 CBC With Auto Diff 08/04/2011 [facility] WBC 9.5 K/uL 4.1-11.0 RBC 4.70 M/uL 4.00-5.40 Hemoglobin 14.1 gm/dL 12.0-16.0 Hematocrit 40.9 % 36.0-47.0 MCV 86.9 fL 80.0-97.0 MCH 29.9 pg 27.0-32.0 MCHC 34.4 g/dL 32.0-36.0 RDW 13.8 % 11.5-14.5 PLT Count 265 K/ul 140-400 Neutrophil 63.3 % 35.0-75.0 Lymphocyte 28.2 % 16.0-52.0 Monocyte 5.4 % 2.0-10.0 Eosinophil 2.3 % 0.0-5.0 Basophil 0.8 % 0.0-4.0 Abs Neutrophils 6.0 K/uL 2.1-8.0 Abs Lymphocytes 2.7 K/uL 0.8-5.5 Abs Monocytes 0.5 K/uL 0.1-1.0 Abs Eosinophils 0.2 K/uL 0.0-0.5 Abs Basophils 0.1 K/uL 0.0-0.3 Laboratory test 05/28/2011 [facility] Urine Culture Microbiology res 34 finding <SEE NOTE> CMP 11/11/2009 [facility] (Do not Use) Sodium 138 mmol/L 135-1 35 [facility] [address] [place] [address] [phone] Potassium 4.5 mmol/L 3.6-5.2 36 Chloride 104 mmol/L 97-110 Carbon Dioxide 28 mmol/L 23-32 Glucose 94 mg/dL 70-105 BUN 7 mg/dL 6-22 Creatinine 1.0 mg/dL 0.5-1.3 BUN/CR 7 Ratio Calcium 9.2 mg/dL 8.6-10.2 Total Protein 6.8 g/dL 5.8-7.8 Albumin 3.9 g/dL 3.5-4.8 Globulin 2.9 g/dL 2.0-3.5 A/G Ratio 1.3 Ratio 1.0-2.2 Total Bilirubin 1.1 mg/dL 0.3-1.2 Alkaline Phosphatase 116 U/L 24-140 Alt 23 U/L 5-45 Ast 22 U/L 12-40 Anion Gap 11 mmol/L 8-16 GFR Calculation > 60 mL/min 60-175 37 GFR For > 60 mL/min 60-175 38 CBC With Auto Diff 11/11/2009 [facility] (Do not Use) WBC 7.3 K/ul 4.0- 10.9 [facility] [place] [address] [phone] RBC 4.68 M/ul 4.20-5.40 Hemoglobin 14.4 GM/dl 12.5-16.0 Hematocrit 41.2 % 36.0-47.0 MCV 88.0 FL 80.0-97.0 MCH 30.6 pg 27.0-31.0 MCHC 34.8 g/dL 32.0-36.0 RDW 13.6 % 11.5-14.5 Platelet Count 247 K/ul 140-440 Neutrophils 66.1 % 50-70 Lymphocytes 23.3 % 20-44 Monocytes 8.1 % 2-9 Eosinophil 1.8 % 0-4 Basophil 0.7 % 0-2 Absolute Neutrophils 4.9 K/ul 2.05-7.63 Absolute Lymphocytes 1.7 K/ul 0.8-4.8 Absolute Monocytes 0.6 K/ul 0.1-1.0 Absolute Eosinophils 0.1 K/ul 0.1-0.5 Absolute Basophils 0.0 K/ul 0.0-0.3 Hematology Comment (Comm2) N/A Laboratory 06/14/2009 [facility] (Do not Use) Urine <10,000 39, 40 test finding [facility] Culture CFU/[place] [address] <SEE NOTE> [phone] Laboratory 02/12/2009 [facility] (Do not Use) Urine NO GROWTH 41 test finding [facility] [place] [address] [phone] Laboratory 02/12/2009 [facility] (Do not Use) Vitamin D, 23 ng/mL Low 31 -1 test finding [facility] 25 Hydroxy 00 [place], [place] [id number] [phone] Laboratory 11/28/2008 [facility] (Do not Use) Urine >100,000 Abnormal 42 test finding [facility] Culture CFU/[place] [address] <SEE NOTE> [phone] Preliminary Ur. Culture Result GRAM NEGATIVE RO <SEE NOTE> Abnormal 43 Gram Negative 11/28/2008 [facility] (Do not Use) Ampicillin (Am) SENSITIVE Sensitivity [facility] [place], [place] [id number] [phone] Ampicillin/Sulbactam (Remi) SENSITIVE Cefazolin (CZ) SENSITIVE Ceftriaxone ([employer] SENSITIVE Ciprofloxacin (Cip) SENSITIVE Nitrofurantoin (FT) SENSITIVE Trimethoprim/Sulfamethoxazole (SXT) SENSITIVE Laboratory test 11/23/2008 [facility] Pathology Exam ( SEE NOTE) 44 finding (449)- - CMP 09/05/2008 [facility] Glucose 102 mg/dL 76-115 (315)- - BUN 6 mg/dL 5-23 Creatinine 1.1 mg/dL 0.5-1.4 Glom Filtration Rate, Estimate >60 mL/min >60 If >60 mL/min >60 45 BUN/Creat 5.4 Sodium 141 mEq/L 136-145 Potassium 3.1 mEq/L Low 3.5-5.1 Chloride 105 mEq/L 98-107 Carbon Dioxide 26 mEq/L 21-32 Anion Gap 13 mEq/L 8-16 Calcium 9.4 mg/dL 8.5-10.1 Total Protein 7.9 g/dL 6.3-8.0 Albumin 4.1 g/dL 3.5-5.0 Globulin 3.8 gm/dL 1.9-4.3 Alb/Glob 1.1 Bilirubin,Total 0.8 mg/dL 0.2-1.2 Sgot/Ast 28 U/L 16-40 SGPT/Alt 36 U/L 30-65 Alkaline Phosphatase 195 U/L High 50-136 Laboratory test finding 09/05/2008 [facility] CK 143 U/L 26-190 (315)- - Troponin-I 0.0 NG/ML 0.0-0.6 46 CBC W/Automated Diff 09/05/2008 [facility] White Blood 9.2 K/uL 3.1-10.7 (315)- - Count Red Blood Count 4.86 M/uL 3.90-5.40 Hemoglobin 14.7 gm/dL 11.6-15.8 Hematocrit 42.7 % 36.0-46.1 Mean Cell Volume 87.9 fl 80.9-99.0 Mean Corpuscular HGB 30.2 pg 25.9-32.7 Mean Corpuscular HGB Conc 34.4 g/dL High 30.8-34.3 Platelet Count 276 K/uL 155-360 Red Cell Distri Width %CV 12.6 % 11.7-14.4 Mean Platelet Volume 11.0 fL 8.9-12.4 Neut% 69.0 % 40.4-72.8 Lymph % 24.3 % 17.0-46.1 Wells % 5.7 % 4.3-13.2 Eo% 0.9 % 0.0-6.6 Bas% 0.1 % 0.0-1.1 Neut# 6.4 K/uL 1.0-7.0 Lymph # 2.2 K/uL 0.8-3.4 Wells # 0.5 K/uL 0.3-0.9 Eos # 0.1 K/uL 0.0-0.5 Baso # 0.0 K/uL 0.0-0.1 Red Cell Distri Width SD 40 fl 3-47 Laboratory test 09/05/2008 [facility] D-Dimer, 0.28 ug/ mL 47 finding (315)- - Quantitative HCG Serum, Qualitative NEGATIVE Urine Screen DNR 48 Laboratory test 08/27/2008 [facility] (Do not Use) Ferritin 16.7 ng/ml 11-306 49 finding [facility] [place] [address] [phone] TSH 1.08 uIU/ml 0.34-5.60 Free T4 0.77 ng/dL 0.50-1.60 Vitamin D, 25 Hydroxy 28 ng/mL Low 31-100 CBC With Auto Diff 08/27/2008 [facility] (Do not Use) WBC 6.5 K/ul 4.0- 10.9 [facility] [place] [address] [phone] RBC 4.73 M/ul 4.20-5.40 Hemoglobin 14.6 GM/dl 12.5-16.0 Hematocrit 42.1 % 36.0-47.0 MCV 89.0 FL 80.0-97.0 MCH 31.0 pg 27.0-31.0 MCHC 34.8 g/dL 32.0-36.0 RDW 13.3 % 11.5-14.5 Platelet Count 280 K/ul 140-440 Neutrophils 63.2 % 50-70 Lymphocytes 29.1 % 20-44 Monocytes 6.1 % 2-9 Eosinophil 0.8 % 0-4 Basophil 0.8 % 0-2 Absolute Neutrophils 4.1 K/ul 2.05-7.63 Absolute Lymphocytes 1.9 K/ul 0.8-4.8 Absolute Monocytes 0.4 K/ul 0.1-1.0 Absolute Eosinophils 0.1 K/ul 0.1-0.5 Absolute Basophils 0.1 K/ul 0.0-0.3 Hematology Comment (Comm2) N/A Laboratory test 05/28/2008 [facility] Urine Culture NO GROWTH: 50 finding (315)- - FINAL <SEE NOTE> CBC With Auto 04/03/2008 [facility] (Do not Use) WBC 10.7 K/ul 4.0-10 51 Diff [facility] .[address] [place] [address] [phone] RBC 4.14 M/ul Low 4.20-5.40 Hemoglobin 13.5 GM/dl 12.5-16.0 Hematocrit 38.6 % 36.0-47.0 MCV 93.2 FL 80.0-97.0 MCH 32.6 pg High 27.0-31.0 MCHC 35.0 g/dL 32.0-36.0 RDW 14.5 % 11.5-14.5 Platelet Count 248 K/ul 140-440 Neutrophils 72.4 % High 50-70 Lymphocytes 20.9 % 20-44 Monocytes 5.1 % 2-9 Eosinophil 1.1 % 0-4 Basophil 0.5 % 0-2 Absolute Neutrophils 7.7 K/ul High 2.05-7.63 Absolute Lymphocytes 2.2 K/ul 0.8-4.8 Absolute Monocytes 0.5 K/ul 0.1-1.0 Absolute Eosinophils 0.1 K/ul 0.1-0.5 Absolute Basophils 0.0 K/ul 0.0-0.3 Hematology Comment (Comm2) N/A Laboratory test 04/03/2008 [facility] (Do not Use) Ferritin 30.0 ng/ml 11-306 [place] [address] [phone] Iron Panel 04/03/2008 [facility] (Do not Use) Iron, Total 119 g/dL 28 -170 [place] [address] [phone] Transferrin 277 mg/dL 192-382 Tibc (Calc) 388 g/dL 261-478 % Saturation (Calc) 30.7 % 13.0-45.0 Basic (BMP) 04/03/2008 [facility] (Do not Use) Sodium 139 mmol/L 135- 144 [place] [address] [phone] Potassium 3.4 mmol/L Low 3.6-5.2 52 Chloride 106 mmol/L 97-110 Carbon Dioxide 21 mmol/L Low 23-33 Glucose 63 mg/dL Low 70-105 BUN 3 mg/dL Low 6-22 Creatinine 0.6 mg/dL 0.5-1.3 BUN/CR 5 Ratio Low 12.0-20.0 Anion Gap 15 mmol/L 8-16 Calcium 9.1 mg/dL 8.6-10.2 53 GFR Calculation > 60 mL/min 54 GFR For > 60 mL/min 55 Urine Microscopic 02/23/2008 [facility] (Do not Use) Urine WBC -LA 3-5 / HPF (0-5) 56 [place] [address] [phone] Urine RBC -LA 0-2 /HPF (0-2) Epithelial Cells -LA 2+ /HPF Abnormal Bacteria -LA 1+ /HPF Abnormal Mucus -LA N/A /HPF Comment -LA N/A Comment -LA N/A Amorphous 4+ /HPF Caox Crystals 1+ /HPF 57 Laboratory test 02/23/2008 [facility] (Do not Use) Urine [place] [address] [phone] Laboratory test 01/06/2008 [facility] (Do not Use) Urine [place] [address] [phone] CMP 09/22/2007 [facility] (Do not Use) Sodium 136 mmol/L 135-[address] [address] [phone] Potassium 4.6 mmol/L 3.6-5.2 Chloride 103 mmol/L 97-110 Carbon Dioxide 24 mmol/L 23-33 Glucose 80 mg/dL 70-105 BUN 9 mg/dL 6-22 Creatinine 0.8 mg/dL 0.5-1.3 BUN/CR 11 Ratio Low 12.0-20.0 Calcium 9.5 mg/dL 8.6-10.2 Total Protein 6.6 g/dL 5.8-7.8 Albumin 3.9 g/dL 3.5-4.8 Globulin 2.7 g/dL 2.0-3.5 A/G Ratio 1.4 Ratio 1.0-2.2 Total Bilirubin 0.8 mg/dL 0.3-1.2 Alkaline Phosphatase 105 U/L 24-140 Alt 19 U/L 4-45 Ast 21 U/L 12-40 Anion Gap 14 mmol/L 8-16 GFR Calculation > 60 mL/min 59 GFR For > 60 mL/min 60 Laboratory test 09/22/2007 [facility] (Do not Use) Ferritin 22.2 ng/ml 11-306 finding [facility] [place] [address] [phone] CBC With Auto Diff 09/22/2007 [facility] (Do not Use) WBC 8.7 K/ul 4.0- 10.9 [facility] [place] [address] [phone] RBC 4.63 M/ul 4.20-5.40 Hemoglobin 13.9 GM/dl 12.5-16.0 Hematocrit 41.0 % 36.0-47.0 MCV 88.6 FL 80.0-97.0 MCH 30.0 pg 27.0-31.0 MCHC 33.9 g/dL 32.0-36.0 RDW 13.0 % 11.5-14.5 Platelet Count 254 K/ul 140-440 Neutrophils 64.2 % 50-70 Lymphocytes 27.8 % 20-44 Monocytes 6.5 % 2-9 Eosinophil 1.0 % 0-4 Basophil 0.5 % 0-2 Absolute Neutrophils 5.6 K/ul 2.05-7.63 Absolute Lymphocytes 2.4 K/ul 0.8-4.8 Absolute Monocytes 0.6 K/ul 0.1-1.0 Absolute Eosinophils 0.1 K/ul 0.1-0.5 Absolute Basophils 0.0 K/ul 0.0-0.3 Lipid Panel 09/22/2007 [facility] (Do not Use) Cholesterol 144 mg/dL 50 -199 [facility] [place] [address] [phone] Triglycerides 71 mg/dL 10-150 HDL 40 mg/dL 35-85 61 Chol/HDL Ratio 3.6 Ratio 62 VLDL 14 mg/dL LDL (Calc) 90 mg/dL 20-129 63 CBC With Auto Diff 03/29/2007 [facility] (Do not Use) WBC 7.4 K/ul 4.0- 10.9 64 [facility] [place] [address] [phone] RBC 4.71 M/ul 4.20-5.40 Hemoglobin 14.3 GM/dl 12.5-16.0 Hematocrit 42.0 % 36.0-47.0 MCV 89.1 FL 80.0-97.0 MCH 30.3 pg 27.0-31.0 MCHC 34.0 g/dL 32.0-36.0 RDW 11.7 % 11.5-14.5 Platelet Count 274 K/ul 140-440 Neutrophils 66.2 % 50-70 Lymphocytes 26.2 % 20-44 Monocytes 5.6 % 2-9 Eosinophil 2.0 % 0-4 Basophil 0.0 % 0-2 Absolute Neutrophils 5.0 K/ul 2.05-7.63 Absolute Lymphocytes 1.9 K/ul 0.8-4.8 Absolute Monocytes 0.4 K/ul 0.1-1.0 Absolute Eosinophils 0.1 K/ul 0.1-0.5 Absolute Basophils 0.0 K/ul Low 0.1-0.3 CMP 03/29/2007 [facility] (Do not Use) Sodium 138 mmol/L 135-144 [facility] [place] [address] [phone] Potassium 4.3 mmol/L 3.6-5.2 Chloride 104 mmol/L 97-110 Carbon Dioxide 29 mmol/L 23-33 Glucose 89 mg/dL 70-105 BUN 7 mg/dL 6-22 Creatinine 1.0 mg/dL 0.5-1.3 BUN/CR 7 Ratio Low 12.0-20.0 Calcium 9.5 mg/dL 8.6-10.2 Total Protein 6.6 g/dL 5.8-7.8 Albumin 3.8 g/dL 3.5-4.8 Globulin 2.8 g/dL 2.0-3.5 A/G Ratio 1.4 Ratio 1.0-2.2 Total Bilirubin 1.1 mg/dL 0.3-1.2 Alkaline Phosphatase 99 U/L 24-140 Alt 23 U/L 4-45 Ast 22 U/L 12-40 Anion Gap 9 mmol/L 8-16 GFR Calculation > 60 mL/min 65 GFR For > 60 mL/min 66 Laboratory test 03/29/2007 [facility] (Do not Use) TSH 2.79 uIU/ml 0.34 -5.60 finding [facility] [place] [address] [phone] Magnesium 2.0 mg/dL 1.8-2.5 Ferritin 29.8 ng/ml 11-306 Urine Microscopic 01/13/2007 [facility] (Do not Use) Urine WBC * 25-50 / HPF (0-5) Only -RL [facility] [place] [address] [phone] Urine RBC -LA * >150 /HPF (0-2) Epithelial Cells -LA 1+ /HPF Abnormal Bacteria -LA 1+ /HPF Abnormal Mucus -LA N/A /HPF Comment -LA N/A Comment -LA N/A CBC With Auto Diff 08/27/2006 [facility] (Do not Use) WBC 7.4 K/ul 4.0- 10.9 [facility] [place] [address] [phone] RBC 4.61 M/ul 4.20-5.40 Hemoglobin 14.4 GM/dl 12.5-16.0 Hematocrit 42.0 % 36.0-47.0 MCV 91.0 FL 80.0-97.0 MCH 31.1 pg High 27.0-31.0 MCHC 34.2 g/dL 32.0-36.0 RDW 11.5 % 11.5-14.5 Platelet Count 269 K/ul 140-440 Neutrophils 65.2 % 50-70 Lymphocytes 27.6 % 20-44 Monocytes 5.5 % 2-9 Eosinophil 1.7 % 0-4 Basophil 0.0 % 0-2 Absolute Neutrophils 4.9 K/ul 2.05-7.63 Absolute Lymphocytes 2.0 K/ul 0.8-4.8 Absolute Monocytes 0.4 K/ul 0.1-1.0 Absolute Eosinophils 0.1 K/ul 0.1-0.5 Absolute Basophils 0.0 K/ul Low 0.1-0.3 Laboratory test 08/27/2006 [facility] (Do not Use) Ferritin 28.2 ng/ml 11-306 finding [facility] [place] [address] [phone] CMP 08/27/2006 [facility] (Do not Use) Sodium 140 mmol/L 135-144 [facility] [place] [address] [phone] Potassium 4.4 mmol/L 3.6-5.2 Chloride 106 mmol/L 97-110 Carbon Dioxide 26 mmol/L 23-33 Glucose 82 mg/dL 70-105 BUN 6 mg/dL 6-22 Creatinine 0.9 mg/dL 0.5-1.3 BUN/CR 7 Ratio Low 12.0-20.0 Calcium 9.4 mg/dL 8.6-10.2 Total Protein 6.6 g/dL 5.8-7.8 Albumin 3.9 g/dL 3.5-4.8 Globulin 2.7 g/dL 2.0-3.5 A/G Ratio 1.4 Ratio 1.0-2.2 Total Bilirubin 1.1 mg/dL 0.3-1.2 Alkaline Phosphatase 97 U/L 24-140 Alt 17 U/L 4-45 Ast 20 U/L 12-40 Anion Gap 12 mmol/L 8-16 GFR Calculation > 60 mL/min 67 GFR For > 60 mL/min 68 CBC With Auto Diff 05/10/2006 [facility] (Do not Use) WBC 9.9 K/ul 4.0- 10.9 [facility] [place] [address] [phone] RBC 4.48 M/ul 4.20-5.40 Hemoglobin 14.4 GM/dl 12.5-16.0 Hematocrit 40.3 % 36.0-47.0 MCV 89.9 FL 80.0-97.0 MCH 32.1 pg High 27.0-31.0 MCHC 35.7 g/dL 32.0-36.0 RDW 11.9 % 11.5-14.5 Platelet Count 293 K/ul 140-440 Laboratory test 05/10/2006 [facility] (Do not Use) Ferritin 32.3 ng/ml 11-306 finding [place], [place] [address] [phone] Diff For Manual CBC 05/10/2006 [facility] (Do not Use) Neutrophil 54 % 50-70 [place], [place] [phone] Lymphocyte 40 % 20-44 Monocyte 4 % 2-9 Eosinophil 1 % 0-4 Platelet Estimate NORMAL RBC Morphology NORMAL Atypical Lymphs 1 % CBC With Auto Diff 02/01/2006 [facility] (Do not Use) WBC 10.0 K/ul 4.0 -10.9 [place], [place] [phone] RBC 4.80 M/ul 4.20-5.40 Hemoglobin 15.0 GM/dl 12.5-16.0 Hematocrit 43.1 % 36.0-47.0 MCV 89.7 FL 80.0-97.0 MCH 31.2 pg High 27.0-31.0 MCHC 34.8 g/dL 32.0-36.0 RDW 11.6 % 11.5-14.5 Platelet Count 299 K/ul 140-440 Laboratory test 02/01/2006 [facility] (Do not Use) Ferritin 38.3 ng/ml 6-115 finding [place], [place] [address] [phone] Diff For Manual 02/01/2006 [facility] (Do not Use) Neutrophil 71 % High 50-70 CBC [place], [place] [address] [phone] Lymphocyte 20 % 20-44 Monocyte 8 % 2-9 Platelet Estimate NORMAL RBC Morphology NORMAL Atypical Lymphs 1 % Laboratory test 11/11/2005 [facility] (Do not Use) Urine >100,000 Abnormal 69 finding [facility] Culture CFU/ML <[place] [address] NOTE> [phone] Gram Negative 11/11/2005 [facility] (Do not Use) Amoxicillin/ SENSITIVE Sensitivity [facility] [place] [place] [address] [phone] Ampicillin SENSITIVE Cefotaxime SENSITIVE Ceftriaxone SENSITIVE Cephalothin SENSITIVE Ciprofloxacin SENSITIVE Nitrofurantoin SENSITIVE Norfloxacin SENSITIVE Tetracycline SENSITIVE Trimethoprim/Sulfa SENSITIVE Laboratory test 11/02/2005 [facility] (Do not Use) Ferritin 47.5 ng/ml 6-115 [place] [address] [phone] Iron Panel 08/05/2005 [facility] (Do not Use) Iron, Total 86 g/dL 28- 170 70 [place] [address] [phone] Transferrin 195 mg/dL 192-382 Tibc (Calc) 272 g/dL 261-478 % Saturation (Calc) 31.6 % 13.0-45.0 Iron Panel 08/05/2005 [facility] (Do not Use) Iron, Total DELETED g/dL 28-170 71 [place] [address] [phone] Total Iron Binding Capacity DELETED g/dL 261-478 72 % Iron Saturation DELETED % 13.0-45.0 Lipid Panel 08/05/2005 [facility] (Do not Use) Cholesterol 153 mg/dL 50 -199 [address] [place] [address] [phone] Triglycerides 86 mg/dL 10-150 HDL 37 mg/dL 35-85 Chol/HDL Ratio 4.1 Ratio VLDL 17 mg/dL LDL (Calc) 99 mg/dL 20-129 CMP 08/05/2005 [facility] (Do not Use) Sodium 140 mmol/L 135-144 [place] [address] [phone] Potassium 4.1 mmol/L 3.6-5.2 Chloride 104 mmol/L 97-110 Carbon Dioxide 28 mmol/L 23-33 Glucose 66 mg/dL Low 70-105 BUN 6 mg/dL 6-22 Creatinine 0.9 mg/dL 0.5-1.3 BUN/CR 7 Ratio Low 12.0-20.0 Calcium 9.3 mg/dL 8.6-10.2 Total Protein 6.7 g/dL 5.8-7.8 Albumin 4.2 g/dL 3.5-4.8 Globulin 2.5 g/dL 2.0-3.5 A/G Ratio 1.7 Ratio 1.0-2.2 Total Bilirubin 1.0 mg/dL 0.3-1.2 Alkaline Phosphatase 107 U/L 24-140 Alt 20 U/L 4-45 Ast 21 U/L 12-40 Anion Gap 12 mmol/L 8-16 GFR White Male 110 GFR White Female 81 GFR Black Male 133 GFR Black Female 98 GFR Guidelines 0 74 Laboratory test 08/05/2005 [facility] (Do not Use) Ferritin 34.8 ng/ml 6-115 finding [facility] [place] [address] [phone] TSH 2.54 uIU/ml 0.50-6.00 CBC With Auto Diff 08/05/2005 [facility] (Do not Use) WBC 6.1 K/ul 4.0- 10.9 [facility] [place] [address] [phone] RBC 4.69 M/ul 4.20-5.40 Hemoglobin 15.0 GM/dl 12.5-16.0 Hematocrit 42.0 % 36.0-47.0 MCV 89.6 FL 80.0-97.0 MCH 32.0 pg High 27.0-31.0 MCHC 35.7 g/dL 32.0-36.0 RDW 11.6 % 11.5-14.5 Platelet Count 232 K/ul 140-440 Neutrophils 61.9 % 50-70 Lymphocytes 30.4 % 20-44 Monocytes 5.6 % 2-9 Eosinophil 1.7 % 0-4 Basophil 0.4 % 0-2 Absolute Neutrophils 3.8 K/ul 2.05-7.63 Absolute Lymphocytes 1.9 K/ul 0.8-4.8 Absolute Monocytes 0.3 K/ul 0.1-1.0 Absolute Eosinophils 0.1 K/ul 0.1-0.5 Absolute Basophils 0.0 K/ul Low 0.1-0.3 Laboratory test 06/21/2002 [facility] (Do not Use) Total Ige 19.4 IU/mL 0.0-87.0 finding [facility] [place] [address] [phone] CBC 06/21/2002 [facility] (Do not Use) WBC 9.2 K/ul 4.1-10.9 [facility] [place] [address] [phone] RBC 4.70 M/ul 4.2-6.3 Hemoglobin 15.2 GM/dl 12.0-16.0 Hematocrit 43.4 % 37.0-51.0 MCV 92.3 FL 80-97 MCH 32.4 pg High 26.0-32.0 MCHC 35.1 g/dL 31.0-36.0 RDW 11.3 % Low 11.5-14.5 Platelet Count 258 K/ul 140-440 Neutrophils 68.9 % 50-70 Lymphocytes 19.4 % Low 20-44 Monocytes 6.9 % 2-9 Eosinophil 1.8 % 0-4 Basophil 3.0 % High 0-2 Absolute Neutrophils 6.3 K/ul 2.05-7.63 Absolute Lymphocytes 1.8 K/ul 0.8-4.8 Absolute Monocytes 0.6 K/ul 0.1-1.0 Absolute Eosinophils 0.2 K/ul 0.1-0.5 Absolute Basophils 0.3 K/ul 0.1-0.3 1 This sample is drawn by:[facility]. 2 Clinical Guidelines for recommended serum 25(OH)Vitamin D Deficient at less than 20 ng/mL Insufficient at 20 to <30 ng/mL Sufficient at 30-100 ng/mL Toxicity at greater than 100 ng/mL 3 Updated reference range on new analyzer 4 Updated reference range on new analyzer 5 Concerning GFR Guidelines for Americans: Normal function or mild renal disease, if clinically at risk: >/=60 mL/min Moderately decreased: 30-59 Severely decreased: 15-29 Renal failure: <15 6 Concerning GFR Guidelines: Normal function or mild renal disease, if clinically at risk: >/=60 mL/min Moderately decreased: 30-59 Severely decreased: 15-29 Renal failure: <15 Glomerular Filtration Rate (GFR) is estimated based on the MDRD equation, which assumes a steady state for creatinine as recommended by the National Kidney Disease Education Program in conjunction with the National Institutes of Health and the National Kidney Foundation. Clinical conditions in which it may be necessary to measure GFR by using clearance methods include extremes of age and body size, severe malnutrition or obesity, diseases of skeletal muscle, paraplegia or quadriplegia, vegetarian diet, rapidly changing kidney function, and calculation of the dose of potentially toxic drugs that are excreted by the kidneys. 7 Updated Reference Range 8 Per NCEP ATP III Guidelines: Results lower than 40 mg/dL are suggestive of increased risk for coronary artery disease. Results > or=to 60 mg/dL are considered a negative risk factor. 9 Per NCEP ATP III Guidelines: Normal Population <130 Patients with medical conditions: CHD/DM Optimal: <100 Borderline high: 130-159 High: 160-189 Very high: >189 10 NOT INFECTED WITH HCV, UNLESS RECENT INFECTION IS SUSPECTED OR OTHER EVIDENCE EXISTS TO INDICATE HCV INFECTION. Unless otherwise specified, testing performed by [facility] [address] [place] [id number] 11 Concerning GFR Guidelines for Americans: Normal function or mild renal disease, if clinically at risk: >/=60 mL/min Moderately decreased: 30-59 Severely decreased: 15-29 Renal failure: <15 12 Concerning GFR Guidelines: Normal function or mild renal disease, if clinically at risk: >/=60 mL/min Moderately decreased: 30-59 Severely decreased: 15-29 Renal failure: <15 Glomerular Filtration Rate (GFR) is estimated based on the MDRD equation, which assumes a steady state for creatinine as recommended by the National Kidney Disease Education Program in conjunction with the National Institutes of Health and the National Kidney Foundation. Clinical conditions in which it may be necessary to measure GFR by using clearance methods include extremes of age and body size, severe malnutrition or obesity, diseases of skeletal muscle, paraplegia or quadriplegia, vegetarian diet, rapidly changing kidney function, and calculation of the dose of potentially toxic drugs that are excreted by the kidneys. 13 Per NCEP ATP III Guidelines: Results lower than 40 mg/dL are suggestive of increased risk for coronary artery disease. Results > or=to 60 mg/dL are considered a negative risk factor. 14 Per NCEP ATP III Guidelines: Normal Population <130 Patients with medical conditions: CHD/DM Optimal: <100 Borderline high: 130-159 High: 160-189 Very high: >189 15 Concerning GFR Guidelines for Americans: Normal function or mild renal disease, if clinically at risk: >/=60 mL/min Moderately decreased: 30-59 Severely decreased: 15-29 Renal failure: <15 16 Concerning GFR Guidelines: Normal function or mild renal disease, if clinically at risk: >/=60 mL/min Moderately decreased: 30-59 Severely decreased: 15-29 Renal failure: <15 Glomerular Filtration Rate (GFR) is estimated based on the MDRD equation, which assumes a steady state for creatinine as recommended by the National Kidney Disease Education Program in conjunction with the National Institutes of Health and the National Kidney Foundation. Clinical conditions in which it may be necessary to measure GFR by using clearance methods include extremes of age and body size, severe malnutrition or obesity, diseases of skeletal muscle, paraplegia or quadriplegia, vegetarian diet, rapidly changing kidney function, and calculation of the dose of potentially toxic drugs that are excreted by the kidneys. 17 Unless otherwise specified, testing performed by [facility] [facility] [address] [place] [id number] 18 Microbiology results SOURCE URINE FINAL RESULT No growth 19 Concerning GFR Guidelines: Normal function or mild renal disease, if clinically at risk: >/=60 mL/min Moderately decreased: 30-59 Severely decreased: 15-29 Renal failure: <15 Glomerular Filtration Rate (GFR) is estimated based on the MDRD equation, which assumes a steady state for creatinine as recommended by the National Kidney Disease Education Program in conjunction with the National Institutes of Health and the National Kidney Foundation. Clinical conditions in which it may be necessary to measure GFR by using clearance methods include extremes of age and body size, severe malnutrition or obesity, diseases of skeletal muscle, paraplegia or quadriplegia, vegetarian diet, rapidly changing kidney function, and calculation of the dose of potentially toxic drugs that are excreted by the kidneys. 20 Concerning GFR Guidelines for Americans: Normal function or mild renal disease, if clinically at risk: >/=60 mL/min Moderately decreased: 30-59 Severely decreased: 15-29 Renal failure: <15 21 Microbiology results SOURCE URINE FINAL RESULT No growth 22 This sample is drawn by:MM 23 Microbiology results SOURCE MIDU FINAL RESULT No growth 24 INTERPRETATION OF RESULTS: < 20 UNITS NEGATIVE 20-30 UNITS WEAK POSITIVE > 30 UNITS MODERATE TO STRONG POSITIVE The following result was obtained with the [employer] Deolane Gliadin IgA II. Results obtained with other manufacturers' assay methods may not be used interchangeably. The magnitude of the reported IgA level cannot be correlated to an endpoint titer. 25 INTERPRETATION OF RESULTS: < 20 UNITS NEGATIVE 20-30 UNITS WEAK POSITIVE > 30 UNITS MODERATE TO STRONG POSITIVE The following result was obtained with the [employer] Lite Gliadin IgG II. Results obtained with other manufacturers' assay methods may not be used interchangeably. The magnitude of the reported IgG levels cannot be correlated to an endpoint titer. 26 INTERPRETATION OF RESULTS: < 20 UNITS NEGATIVE 20-30 UNITS WEAK POSITIVE > 30 UNITS MODERATE TO STRONG POSITIVE The following result was obtained with the [employer] Lite h-tTG IgA LARA. Results obtained with other manufacturers' assay methods may not be used interchangeably. The magnitude of the reported IgA level cannot be correlated to an endpoint titer. Performed at [address] [place] [address] 27 INTERPRETATION OF RESULTS: < 20 UNITS NEGATIVE 20-30 UNITS WEAK POSITIVE > 30 UNITS MODERATE TO STRONG POSITIVE The following result was obtained with the [employer] Lite h-tTG IgG LARA. Results obtained with other manufacturers' assay methods may not be used interchangeably. The magnitude of the reported IgG levels cannot be correlated to an endpoint titer. Performed at [address] [place] [address] Unless otherwise specified, testing performed by [facility] [employer] [facility] [address] [place] [id number] Microbiology results SOURCE URINE FINAL RESULT No growth 29 Microbiology results SOURCE MIDU FINAL RESULT No growth 30 Concerning GFR Guidelines for Americans: Normal function or mild renal disease, if clinically at risk: >/=60 mL/min Moderately decreased: 30-59 Severely decreased: 15-29 Renal failure: <15 31 Concerning GFR Guidelines: Normal function or mild renal disease, if clinically at risk: >/=60 mL/min Moderately decreased: 30-59 Severely decreased: 15-29 Renal failure: <15 Glomerular Filtration Rate (GFR) is estimated based on the MDRD equation, which assumes a steady state for creatinine as recommended by the National Kidney Disease Education Program in conjunction with the National Institutes of Health and the National Kidney Foundation. Clinical conditions in which it may be necessary to measure GFR by using clearance methods include extremes of age and body size, severe malnutrition or obesity, diseases of skeletal muscle, paraplegia or quadriplegia, vegetarian diet, rapidly changing kidney function, and calculation of the dose of potentially toxic drugs that are excreted by the kidneys. 32 Per NCEP ATP III Guidelines: Results lower than 40 mg/dL are suggestive of increased risk for coronary artery disease. Results > or=to 60 mg/dL are considered a negative risk factor. 33 Per NCEP ATP III Guidelines: Optimal: <100 Near optimal: 100-129 Borderline high: 130-159 High: 160-189 Very high: >189 34 Microbiology results SOURCE MIDU FINAL RESULT No Growth 35 This sample is drawn by:MARTINEZ RAMOS 36 The difference between the most recent result of 3.4 and the current result of 4.5 exceeds the absolute delta value of 0.5 as defined for this test. 37 Concerning GFR GUIDELINES: Normal Function or Mild Renal Disease, if clinically at risk: >/=60mL/min Moderately decreased: 30-59 Severely decreased: 15-29 Renal Failure: <15 Glomerular Filtration Rate (GFR) is estimated based on the MDRD equation, which assumes a steady state for creatinine as recommended by the National Kidney Disease Education Program in conjunction with the National Institutes of Health and the National Kidney Foundation. Clinical conditions in which it may be necessary to measure GFR by using clearance methods include extremes of age and body size, severe malnutrition or obesity, diseases of skeletal muscle, paraplegia or quadriplegia, vegetarian diet, rapidly changing kidney function, and calculation of the dose of potentially toxic drugs that are excreted by the kidneys. 38 Concerning GFR GUIDELINES: Normal Function or Mild Renal Disease, if clinically at risk: >/=60mL/min Moderately decreased: 30-59 Severely decreased: 15-29 Renal Failure: <15 39 This sample is drawn by:LA 40 <10,000 CFU/ML REPRESENTING URETHRAL BLAIR 41 This sample is drawn by:CT 42 >100,000 CFU/ML ESCHERICHIA COLI 43 GRAM NEGATIVE IRENE ISOLATED, ID & SENSITIVITY TO FOLLOW 44 OPERATION/PROCEDURE Laparoscopic cholecystectomy DIAGNOSIS: "GALLBLADDER": CHRONIC CHOLECYSTITIS AND CHOLESTEROLOSIS. NO EVIDENCE OF DYSPLASIA NOR NEOPLASIA APPRECIATED. RUBEN/caro 1120 GROSS Received in formalin labeled "GALLBLADDER" is a collier green gallbladder measuring 0.6 x 2.8 x 1.5 cm. collier green gallbladder with smooth serosal surface. It appears to be previously opened. Upon further opening the wall of the gallbladder measures up to 0.2 cm. in thickness. The mucosa is collier green velvety with cantu streaks. There is no evidence of tumor necrosis nor stone. Truckload Checker section is submitted in one block. RUBEN/caro MICROSCOPIC Sections show gallbladder mucosa lined by columnar epithelium with focal synechia, and Rokitansky-Aschoff sinus formation. The submucosa has a mild infiltrate of lymphocytes and plasma cells. Foamy histiocytes are noted within the tips of papillae. The muscular wall is slightly fibrotic and hypertrophied. PRE OPERATIVE DIAGNOSIS Symptomatic gallstone REVIEW CODE CODE: I MANJU Brooks MD 11/27/08 45 Note: Persistent reduction for 3 months or more in an eGFR <60 mL/min/1.73 m2 defines CKD. Patients with eGFR values >/=60 mL/min/1.73 m2 may also have CKD if evidence of persistent proteinuria is present. The original MDRD equation for estimated GFR is not valid for patients less than 18 years of age. Additional information may be found at www.kdoqi.org. 46 0 - 0.6 NG/ML: NO EVIDENCE OF MYOCARDIAL INJURY 0.7 - 1.5 NG/ML: MILD ELEVATION, SUGGESTING POSSIBLE MYOCARDIAL INJURY > 1.5 NG/ML: CONSISTENT WITH MYOCARDIAL INJURY 47 Note: [facility] has established a 97.89% negative predictive value for thrombotic disease when a cutoff value of 0.5 ug/mL is used. Additional performance parameters for local prevalence of 94.4% as follows: PPV: 9.92%, Sensitivity: 76.47%, Specificity: 61.12% 48 NOT OBTAINED 49 This sample is drawn by:NB. 50 NO GROWTH: FINAL REPORT 51 FASTING This sample is drawn by:VIRGIE,MARTINEZ 52 The difference between the most recent result of 4.6 and the current result of 3.4 exceeds the absolute delta value of 0.5 as defined for this test. 53 The difference between the most recent result of 9.5 and the current result of 9.1 exceeds the absolute delta value of 0.3 as defined for this test. 54 Concerning GFR GUIDELINES: Normal Function or Mild Renal Disease, if clinically at risk: >/=60mL/min Moderately decreased: 30-59 Severely decreased: 15-29 Renal Failure: <15 Glomerular Filtration Rate (GFR) is estimated based on the MDRD equation, which assumes a steady state for creatinine as recommended by the National Kidney Disease Education Program in conjunction with the National Institutes of Health and the National Kidney Foundation. Clinical conditions in which it may be necessary to measure GFR by using clearance methods include extremes of age and body size, severe malnutrition or obesity, diseases of skeletal muscle, paraplegia or quadriplegia, vegetarian diet, rapidly changing kidney function, and calculation of the dose of potentially toxic drugs that are excreted by the kidneys. 55 Concerning GFR GUIDELINES: Normal Function or Mild Renal Disease, if clinically at risk: >/=60mL/min Moderately decreased: 30-59 Severely decreased: 15-29 Renal Failure: <15 56 This sample is drawn by: DB 57 Unless otherwise specified, testing performed by [facility] [address] [place] [id number] 58 FASTING This sample is drawn by:CT 59 Concerning GFR GUIDELINES: Normal Function or Mild Renal Disease, if clinically at risk: >/=60mL/min Moderately decreased: 30-59 Severely decreased: 15-29 Renal Failure: <15 Glomerular Filtration Rate (GFR) is estimated based on the MDRD equation, which assumes a steady state for creatinine as recommended by the National Kidney Disease Education Program in conjunction with the National Institutes of Health and the National Kidney Foundation. Clinical conditions in which it may be necessary to measure GFR by using clearance methods include extremes of age and body size, severe malnutrition or obesity, diseases of skeletal muscle, paraplegia or quadriplegia, vegetarian diet, rapidly changing kidney function, and calculation of the dose of potentially toxic drugs that are excreted by the kidneys. 60 Concerning GFR GUIDELINES: Normal Function or Mild Renal Disease, if clinically at risk: >/=60mL/min Moderately decreased: 30-59 Severely decreased: 15-29 Renal Failure: <15 61 PER NCEP ATP III GUIDELINES: RESULTS LOWER THAN 40 MG/DL ARE SUGGESTIVE OF INCREASED RISK FOR CORONARY ARTERY DISEASE. RESULTS > OR=TO 60 MG/DL ARE CONSIDERED A NEGATIVE RISK FACTOR. 62 INTERPRETATION OF CHOL-HDL RATIO CHD RISK FEMALE MALE VERY HIGH >8.3 >14.3 HIGH 5.6 - 8.3 6.7 - 14.3 AVERAGE 3.7 - 5.6 4.0 - 6.7 BELOW AVERAGE 2.5 - 3.7 2.7 - 4.0 PROTECTED <2.5 <2.7 63 PER NCEP ATP III GUIDELINES: OPTIMAL <100 NEAR OPTIMAL 100 - 129 BORDERLINE HIGH 130 - 159 HIGH 160 - 189 VERY HIGH >189 64 FASTING 65 Concerning GFR GUIDELINES: Normal Function or Mild Renal Disease, if clinically at risk: >/=60mL/min Moderately decreased: 30-59 Severely decreased: 15-29 Renal Failure: <15 Glomerular Filtration Rate (GFR) is estimated based on the MDRD equation, which assumes a steady state for creatinine as recommended by the National Kidney Disease Education Program in conjunction with the National Institutes of Health and the National Kidney Foundation. Clinical conditions in which it may be necessary to measure GFR by using clearance methods include extremes of age and body size, severe malnutrition or obesity, diseases of skeletal muscle, paraplegia or quadriplegia, vegetarian diet, rapidly changing kidney function, and calculation of the dose of potentially toxic drugs that are excreted by the kidneys. 66 Concerning GFR GUIDELINES: Normal Function or Mild Renal Disease, if clinically at risk: >/=60mL/min Moderately decreased: 30-59 Severely decreased: 15-29 Renal Failure: <15 67 Concerning GFR GUIDELINES: Normal Function or Mild Renal Disease, if clinically at risk: >/=60mL/min Moderately decreased: 30-59 Severely decreased: 15-29 Renal Failure: <15 Glomerular Filtration Rate (GFR) is estimated based on the MDRD equation, which assumes a steady state for creatinine as recommended by the National Kidney Disease Education Program in conjunction with the National Institutes of Health and the National Kidney Foundation. Clinical conditions in which it may be necessary to measure GFR by using clearance methods include extremes of age and body size, severe malnutrition or obesity, diseases of skeletal muscle, paraplegia or quadriplegia, vegetarian diet, rapidly changing kidney function, and calculation of the dose of potentially toxic drugs that are excreted by the kidneys. 68 Concerning GFR GUIDELINES: Normal Function or Mild Renal Disease, if clinically at risk: >/=60mL/min Moderately decreased: 30-59 Severely decreased: 15-29 Renal Failure: <15 69 >100,000 CFU/ML ESCHERICHIA COLI 70 FASTING Test deleted. Reason: WRONG CODE 71 Test deleted. Reason: WRONG CODE 72 Test deleted. Reason: WRONG CODE 73 FASTING 74 Normal Function or Mild Renal Disease, if clinically at risk: >/=60 mL/min Moderately decreased: 30-59 Severely decreased: 15-29 Renal Failure: <15 Glomerular Filtration Rate (GFR) is estimated based on the MDRD equation, which assumes a steady state for creatinine as recommended by the National Kidney Disease Education Program in conjunction with the National Institutes of Health and the National Kidney Foundation. Clinical conditions in which it may be necessary to measure GFR by using clearance methods include extremes of age and body size, severe malnutrition or obesity, diseases of skeletal muscle, paraplegia or quadriplegia, vegetarian diet, rapidly changing kidney function, and calculation of the dose of potentially toxic drugs that are excreted by the kidneys. Procedures Date Code Description Status 07/13/2017 93452 Electrocardiogram Complete Completed 09/30/2007 56188 Electrocardiogram Complete Completed 04/20/2007 24420 Duplex Scan Extracranial Arteries, Complete Bilateral Completed Study 02/28/2007 66602 Electrocardiogram Complete Completed Encounters Type Date Location Provider Dx Diagnosis Office Visit 09/17/2017 Carolyn Kim, I10 Essential (primary) 1:20p RN [facility] [employer] hypertension G43.109 Migraine with aura, not intractable, w/o status migrainosus Z68.41 Body mass index (BMI) 40.0-44.9, adult Office Visit 09/01/2017 10:40a Carolyn Kim G43.009 Migraine w/ o aura, not C, RN MS [employer] intractable, w/o status migrainosus I10 Essential (primary) hypertension Z68.41 Body mass index (BMI) 40.0-44.9, adult Office Visit 07/13/2017 2:00p Jenn Frank F32.1 Major depressive MD Marcelina disorder, single episode, moderate F41.1 Generalized anxiety disorder E55.9 Vitamin D deficiency, unspecified I10 Essential (primary) hypertension J02.9 Acute pharyngitis, unspecified G47.33 Obstructive sleep apnea (adult) (pediatric) E83.110 Hereditary hemochromatosis Z68.41 Body mass index (BMI) 40.0-44.9, adult Z23 Encounter for immunization Office Visit 12/14/2016 4:15p Jenn Frank F41.1 Generalized anxiety MD Marcelina disorder E55.9 Vitamin D deficiency, unspecified F32.1 Major depressive disorder, single episode, moderate R06.2 Wheezing Office Visit 01/29/2015 9:00a Jenn Frank F32.1 Major depressive MarcelinaMD disorder, single episode, moderate F41.1 Generalized anxiety disorder E55.9 Vitamin D deficiency, unspecified R94.5 Abnormal results of liver function studies N92.0 Excessive and frequent menstruation with regular cycle 794.8 Liver Study Abnormal Office Visit 12/17/2014 1:00p Jenn Frank F41.1 Generalized anxiety MD Marcelina disorder D25.9 Leiomyoma of uterus, unspecified R35.0 Frequency of micturition J20.9 Acute bronchitis, unspecified E55.9 Vitamin D deficiency, unspecified Z68.41 Body mass index (BMI) 40.0-44.9, adult R94.5 Abnormal results of liver function studies F32.1 Major depressive disorder, single episode, moderate Office Visit 09/17/2014 1:00p Jenn Frank 300.02 Anxiety Disorder MD Marcelina Generalized 788.41 Urinary Frequency 218.9 Leiomyoma Uterus Unspec Office Visit 07/25/2014 11:15a Jenn Frank 300.02 Anxiety Disorder MD Marcelina Generalized 788.41 Urinary Frequency 780.79 Malaise And Fatigue Other 268.9 Vitamin D Deficiency Unspec Office Visit 06/29/2014 10:15a Jenn Frank MD 595.0 Cystitis Acute 616.10 Vaginitis & Vulvovaginitis Unspec 300.02 Anxiety Disorder Generalized 268.9 Vitamin D Deficiency Unspec Office Visit 03/06/2014 9:45a Jenn Frank MD 595.0 Cystitis Acute 268.9 Vitamin D Deficiency Unspec 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 Office Visit 01/17/2014 3:20p Craolyn Kim, RN 788.41 Urinary Frequency MS [employer] 616.10 Vaginitis & Vulvovaginitis Unspec Office Visit 06/07/2013 1:40p Carolyn Kim, 461.0 Sinusitis Acute RN MS [employer] Maxillary 786.2 Cough Office Visit 04/14/2013 10:00a Carolyn Kim, 053.29 Herpes Zoster Other RN MS [employer] Office Visit 04/12/2013 2:00p Desiree Nick MD 053.29 Herpes Zoster Other Office Visit 03/16/2013 2:40p Carolyn Kim, 599.0 UTI Urinary Tract RN MS [employer] Infection Site Not Spec 616.10 Vaginitis & Vulvovaginitis Unspec 796.2 Blood Pressure Reading Elevated W/O Hypertension Office Visit 01/25/2013 2:40p Carolyn Kim, 461.8 Sinusitis Acute Other RN MS [employer] Office Visit 09/07/2012 10:20a Carolyn Kim, V70.0 Exam (Adult ) General RN [facility] Medical Routine AT Health Care Facility 268.9 Vitamin D Deficiency Unspec 787.91 Diarrhea 682.8 Cellulitis & Abscess Other Spec Sites Office Visit 05/17/2012 8:15a Jenn Frank 461.0 Sinusitis Acute MD Marcelina Maxillary Office Visit 01/25/2012 11:00a Jenn Frank 599.0 UTI Urinary Tract MD Marcelina Infection Site Not Spec 381.81 Eustachian Tube Dysfunction Office Visit 08/04/2011 1:20p Carolyn Kim, V70.0 Exam (Adult ) General RN [facility] Medical Routine AT Health Care Facility 327.23 Apnea, Obstructive Sleep Apnea Adult & Pediatric 790.6 Abnormal Blood Chemistry Other 278.01 Obesity Morbid 599.70 Hematuria, Unspecified Office Visit 05/28/2011 4:15p Carolyn Kim, 599.0 UTI Urinary Tract RN MS [employer] Infection Site Not Spec Office Visit 11/29/2009 3:15p Jenn Frank 784.0 Headache MD Marcelina Office Visit 11/08/2009 3:15p Jenn Frank 784.0 Headache MD Marcelina 780.4 Dizziness & Giddiness 796.2 Blood Pressure Reading Elevated W/O Hypertension 780.2 Syncope & Collapse Office Visit 06/13/2009 10:00a Carolyn Kim, 599.0 UTI Urinary Tract RN MS [employer] Infection Site Not Spec Office Visit 05/24/2009 1:45p Jenn Frank 463 Tonsillitis Acute MD Marcelina 381.01 Otitis Media Serous Acute Office Visit 02/12/2009 11:00a Carolyn Kim RN 788.41 Urinary Frequency MS [employer] DIRECT[employer] 268.9 Vitamin D Deficiency Unspec V04.81 Need For Prophylactic Vaccination & Inoculation/Influenza Office Visit 11/28/2008 2:15p Carolyn Kim, 599.0 UTI Urinary Tract RN MS [employer] Infection Site Not Spec 465.9 URI Upper Respiratory Infections Acute Unspec Sites Office Visit 10/01/2008 4:30p Jenn Frank 574.10 Calculus Gallbladder MD Marcelina W/ Other Cholecystitis W/O Obstruction 268.9 Vitamin D Deficiency Unspec Office Visit 09/11/2008 2:45p Jenn Frank 789.06 Pain Abdominal MD Marcelina Epigastric 296.32 Depressive Disorder Major Recurrent Moderate 599.0 UTI Urinary Tract Infection Site Not Spec Office Visit 08/27/2008 9:00a Jenn Frank 648.44 Mental Disorder MD Marcelina Cond Or Compl 275.0 Metabolic Disorder Iron 296.32 Depressive Disorder Major Recurrent Moderate Office Visit 04/02/2008 5:15p Jenn Frank 275.0 Metabolic Disorder MD Marcelina Iron Office Visit 02/23/2008 2:00p Carolyn Kim, 599.0 UTI Urinary Tract RN MS [employer] Infection Site Not Spec Office Visit 01/06/2008 11:45a Jenn Frank 595.0 Cystitis Acute MD Marcelina 599.70 Hematuria, Unspecified Office Visit 09/30/2007 8:00a Jenn Frank 275.0 Metabolic Disorder MD Marcelina Iron 786.50 Pain Chest Unspec Office Visit 05/30/2007 5:45p Jenn Frank 369.8 Visual Loss One Eye MD Marcelina Unqualified 275.0 Metabolic Disorder Iron Office Visit 04/11/2007 5:30p Jenn Frank 369.8 Visual Loss One Eye MD Marcelina Unqualified Office Visit 02/28/2007 6:30p Jenn Frank 461.0 Sinusitis Acute MD Marcelina Maxillary 786.50 Pain Chest Unspec 275.0 Metabolic Disorder Iron 780.79 Malaise And Fatigue Other Office Visit 01/13/2007 9:00a Carolyn Kim 599.0 UTI Urinary Tract RN MS [employer] Infection Site Not Spec Office Visit 07/26/2006 4:00p Jenn Frank 275.0 Metabolic Disorder MD Marcelina Iron 296.32 Depressive Disorder Major Recurrent Moderate Office Visit 06/01/2006 3:00p Carolyn Kim, 462 Pharyngitis Acute RN MS [employer] DIRECT[employer] Office Visit 05/10/2006 6:15p Jenn Frank 599.0 UTI Urinary Tract MD Marcelina Infection Site Not Spec 275.0 Metabolic Disorder Iron 296.32 Depressive Disorder Major Recurrent Moderate Office Visit 02/24/2006 1:15p Jenn Barrios 461.0 Sinusitis Acute MD Marcelina Maxillary Office Visit 02/01/2006 5:45p Venancio Frankher 275.0 Metabolic Disorder MD Marcelina Iron 296.32 Depressive Disorder Major Recurrent Moderate Office Visit 11/11/2005 11:30a Carolyn Kim, 599.0 UTI Urinary Tract RN MS [employer] DIRECT[employer] Infection Site Not Spec Office Visit 11/02/2005 5:45p Jenn Frank 275.0 Metabolic Disorder MD Marcelina Iron 296.32 Depressive Disorder Major Recurrent Moderate Office Visit 08/03/2005 5:30p Venancio Frankher 275.0 Metabolic Disorder MD Marcelina Iron Office Visit 03/06/2005 9:45a Massiel Covington, 724.2 Lumbago N.P. 724.3 Sciatica Office Visit 06/21/2002 2:30p Zeferino Wu MD 466.0 Bronchitis Acute 780.79 Malaise And Fatigue Other 477.0 Rhinitis Allergic Due To Pollen Office Visit 06/15/2002 11:45a Massiel Covington, 493.00 Asthma Extrinsic N.P. Unspecified 477.0 Rhinitis Allergic Due To Pollen Office Visit 06/03/2001 10:30a aJke Russell MD 461.0 Sinusitis Acute Maxillary 780.6 Fever 780.4 Dizziness & Giddiness 381.01 Otitis Media Serous Acute Office Visit 08/30/2000 9:30a Jennifer Mireles, [facility] Plan of Treatment 02/17/2018 - Carolyn Rosa, RN MS FNPF33.9 Major depressive disorder, recurrent, unspecifiedNew Medication:Bupropion HCL ER (XL) 150 mg - take 2 tablet by mouth every morning, gradually decrease to 1 a day as wdcswyhneG78.1 Generalized anxiety disorderMiscellaneous:CONTINUE DULOXETINE AT 60MG AND TRY TO GRADUALLY CUT BACK ON WELLBUTRIN, ( THIS CAN CAUSE HIGH BP)I10 Essential ( primary) hypertensionNew Medication:Propranolol HCL 20 mg - take 1 tablet by mouth two times dailyNew Labs:Comprehensive Met Panel-[facility], Ordered: Follow up:[facility] ONE MONTHMiscellaneous:CONTINUE ON AMLODIPINE AT 10MG, AND ADD PROPRANOL ( THIS HELPS ANXIETY AND PALPATIONS ) TRY TO CUT BACK ON ON CAFFINE , OR TRY A DECAFE.Z68.41 Body mass index (BMI) 40.0-44.9, adult
[2018-03-18 08:59] VITALS: BP 134/90
--- NOTE | 2018-03-18 10:18 | UC ---
Complaint Female HPI - HPI Summary HPI Summary: 37-year-old female presents with 3 days of dysuria, frequency, urgency, and low back pain. Denies fever, chills, abdominal pain, nausea, vomiting, hematuria, dyspareunia, or vaginal discharge. - History Of Current Complaint Chief Complaint: UCGU Stated Complaint: URINARY Time Seen by Provider: 03/18/18 10:14 Hx Obtained From: Patient Hx Last Menstrual Period: 03/07/18 Pain Intensity: 3 - Allergies/Home Medications Allergies/Adverse Reactions: Allergies Allergy/AdvReac Type Severity Reaction Status Date / Time No Known Allergies Allergy Verified 03/18/18 08:56 PMH/Surg Hx/FS Hx/Imm Hx Previously Healthy: Yes Psychological History: Anxiety, Depression Other History Of: Negative For: Anticoagulant Therapy - Surgical History Surgical History: Yes Surgery Procedure, Year, and Place: cholecystectomy - Family History Known Family History: Positive: Respiratory Disease - Social History Alcohol Use: None Substance Use Type: None Smoking Status (MU): Never Smoked Tobacco Review of Systems All Other Systems Reviewed And Are Negative: Yes Constitutional: Negative: Fever, Chills Respiratory: Positive: Negative Cardiovascular: Positive: Negative Gastrointestinal: Positive: Negative Genitourinary: Positive: Dysuria, Frequency, Urgency. Negative: Hematuria, Vaginal/Penile Discharge, Ulceration/Lesion Neurovascular: Positive: Negative Musculoskeletal: Positive: Negative Neurological: Positive: Negative Physical Exam - Summary Physical Exam Summary: GENERAL APPEARANCE: Well developed, well nourished, alert and cooperative, and appears to be in no acute distress. CARDIAC: Normal S1 and S2. No S3, S4 or murmurs. Rhythm is regular. There is no peripheral edema, cyanosis or pallor. Extremities are warm and well perfused. Capillary refill is less than 2 seconds. LUNGS: Clear to auscultation without rales, rhonchi, wheezing or diminished breath sounds. ABDOMEN: Positive bowel sounds. Soft, nondistended, nontender. No guarding or rebound. No masses or hepatosplenomegally. No CVA tenderness. MUSKULOSKELETAL: ROM intact to all extremities. No joint erythema or tenderness. Normal muscular development. Normal gait. SKIN: Skin normal color, texture and turgor with no lesions or eruptions. Triage Information Reviewed: Yes Vital Signs: Initial Vital Signs Temp 97.6 F 03/18/18 08:55 Pulse 93 03/18/18 08:55 Resp 16 03/18/18 08:55 BP 134/90 03/18/18 08:55 Pulse Ox 100 03/18/18 08:55 Vital Signs Reviewed: Yes Diagnostics - Laboratory Diagnostic Studies Completed/Ordered: POC UA 2+ protein, 3+ blood, positive nitrates, 1+ bilirubin, 2+ leukocyte esteras. Urine prenancy negative. Urine cullture pending. Complaint Female Dx - Course Course Of Treatment: 37-year-old female presents with 3 days of dysuria, frequency, urgency, and low back pain. Denies fever, chills, abdominal pain, nausea, vomiting, hematuria, dyspareunia, or vaginal discharge. Afebrile. Vital signs stable. Overall exam was unremarkable. [id number] urinalysis showed 2+ protein, 3+ blood, positive nitrates, 1+ bilirubin, 2+ leukocyte esterase. Urine negative. Urine culture pending. Will treat with Macrobid twice a day 5 days and provided peridium 100 mg 3 times a day for the next 2 days for discomfort management. She is to follow-up with her primary care provider in 5 days if symptoms do not improve. Anticipatory guidance and warning symptoms were reviewed with the patient. She verbalizes understanding and agrees with plan of care. - Differential Dx/Diagnosis Differential Diagnosis/HQI/PQRI: , Renal Colic, Ureteral Stone, Urinary Tract Infection Provider Diagnosis: UTI (urinary tract infection) Discharge - Sign-Out/Discharge Documenting (check all that apply): Patient Departure All imaging exams completed and their final reports reviewed: No Studies - Discharge Plan Condition: Stable Disposition: HOME Prescriptions: Nitrofurantoin Monohyd/M-Cryst [Macrobid 100 mg Capsule] 100 mg PO BID #10 cap Phenazopyridine TAB* [Pyridium 100 mg TAB*] 100 mg PO TID #6 tab Patient Education Materials: Urinary Tract Infection in Women (ED) Referrals: Jenn Ramírez MD [Primary Care Provider] - 5 Days (If no improvement.) Additional Instructions: Your urine test in the clinic today is suggestive of a urinary tract infection. We will start you on an antibiotic to treat for the infection. We will also send a urine culture today to see what bacteria grow out and make sure the antibiotic you were prescribed is appropriate to treat the infection. It will take 48-72 hours to get these results. We will contact you if there is any change in your treatment plan. Start Macrobid 1 tab twice a day for 5 days. Take Pyridium 1 tablet every 8 hours for next 2 days to help with the discomfort. This medication will turn your urine an orange color. Drink plenty of fluids. To help prevent urinary tract infections: 1) Be sure to wipe from front to back. 2) Urinate immediately after any sexual intercourse. 3) Avoid taking bubble baths. Follow up with your primary care provider in 5-7 days if symptoms persist. Seek immediate medical attention in the emergency room if you develop fever greater than 100.5 F, have severe abdominal pain, persistent vomiting, or any worsening of symptoms. - Billing Disposition and Condition Condition: STABLE Disposition: Home
== END 2018-03-18 10:24 | disposition home or self-care (01) ==
LOC: UCCORT 08:29
DX: N39.0 Urinary tract infection, site not specified (principal)
CPT/HCPCS: 81003; 84702; 87077; 87086; 87186; 99212; G0463

== ENCOUNTER 2018-08-10 12:56 | Emergency (ER) | payer BC ==
[2018-08-10 13:32] VITALS: BP 128/84
--- NOTE | 2018-08-10 13:46 | UC ---
Complaint Female HPI - HPI Summary HPI Summary: Pt presents with c/o sudden onset of urinary frequency and dysuria X 2 days. Pt 's last UTI was 4 months ago. - History Of Current Complaint Chief Complaint: UCGU Stated Complaint: URINARY Time Seen by Provider: 08/10/18 13:31 Hx Obtained From: Patient Hx Last Menstrual Period: 07/16/18 ?: No Onset/Duration: Sudden Onset, Lasting Days, Still Present Timing: Constant Severity Initially: Mild Severity Currently: Mild Pain Intensity: 4 Character: Dull, Burning Aggravating Factor(s): Urination Alleviating Factor(s): Nothing Associated Signs And Symptoms: Positive: Negative - Risk Factors Ectopic Risk Factor: Negative Ovarian Torsion Risk Factor: Reproductive Age - Allergies/Home Medications Allergies/Adverse Reactions: Allergies Allergy/AdvReac Type Severity Reaction Status Date / Time No Known Allergies Allergy Verified 08/10/18 13:28 PMH/Surg Hx/FS Hx/Imm Hx Previously Healthy: Yes Psychological History: Depression Other History Of: Negative For: Anticoagulant Therapy - Surgical History Surgical History: Yes Surgery Procedure, Year, and Place: cholecystectomy - Family History Known Family History: Positive: Respiratory Disease - Social History Occupation: Employed Full-time Lives: With Family Alcohol Use: None Substance Use Type: None Smoking Status (MU): Never Smoked Tobacco Have You Smoked in the Last Year: No Review of Systems All Other Systems Reviewed And Are Negative: Yes Constitutional: Positive: Negative Skin: Positive: Negative Eyes: Positive: Negative ENT: Positive: Negative Respiratory: Positive: Negative Cardiovascular: Positive: Negative Gastrointestinal: Positive: Negative Genitourinary: Positive: Dysuria, Frequency, Urgency Motor: Positive: Negative Neurovascular: Positive: Negative Musculoskeletal: Positive: Negative Neurological: Positive: Negative Psychological: Positive: Negative Is Patient Immunocompromised?: No Physical Exam Triage Information Reviewed: Yes Appearance: Well-Appearing Vital Signs: Initial Vital Signs Temp 96.7 F 08/10/18 13:28 Pulse 86 08/10/18 13:28 Resp 16 08/10/18 13:28 BP 128/84 08/10/18 13:28 Pulse Ox 100 08/10/18 13:28 Vital Signs Reviewed: Yes Eye Exam: Normal ENT Exam: Normal Dental Exam: Normal Neck exam: Normal Respiratory Exam: Normal Cardiovascular Exam: Normal Abdominal Exam: Normal Musculoskeletal Exam: Normal Neurological Exam: Normal Psychological Exam: Normal Skin Exam: Normal Complaint Female Dx - Differential Dx/Diagnosis Differential Diagnosis/HQI/PQRI: Urinary Tract Infection Provider Diagnosis: UTI (urinary tract infection) Discharge - Sign-Out/Discharge Documenting (check all that apply): Patient Departure All imaging exams completed and their final reports reviewed: No Studies - Discharge Plan Condition: Stable Disposition: HOME Prescriptions: Cephalexin CAP* [Keflex 500 CAP*] 500 mg PO Q8H #21 cap Fluconazole 150 MG TAB* [Diflucan 150 MG TAB*] 150 mg PO UC ONCE #2 tablet Phenazopyridine 200 mg (NF) [Pyridium 200 MG tab *] 200 mg PO Q8H #3 tab Patient Education Materials: Urinary Tract Infection in Women (ED) Referrals: Jenn Ramírez MD [Primary Care Provider] - If Needed - Billing Disposition and Condition Condition: STABLE Disposition: Home
== END 2018-08-10 13:54 | disposition home or self-care (01) ==
LOC: UCCORT 12:56
DX: N39.0 Urinary tract infection, site not specified (principal)
CPT/HCPCS: 81003; 84702; 87086; 99212; G0463

== ENCOUNTER 2018-12-04 18:59 | Emergency (ER) | payer BC ==
[2018-12-04 19:26] VITALS: BP 132/88
--- NOTE | 2018-12-04 19:30 | UC ---
Complaint Female HPI - HPI Summary HPI Summary: 37 yo female with the onset of dysuria, urgency and frequency since last pm no f/c no back or abd pain no vag d/c or itch - History Of Current Complaint Chief Complaint: UCGU Stated Complaint: URINARY Time Seen by Provider: 12/04/18 19:22 Hx Obtained From: Patient Hx Last Menstrual Period: 11/26/18 Onset/Duration: Gradual Onset Timing: Lasting Seconds Severity Initially: Moderate Severity Currently: None Pain Intensity: 0 Pain Scale Used: 0-10 Numeric Character: Burning Aggravating Factor(s): Urination Associated Signs And Symptoms: Negative: Fever, Back Pain, Vaginal Bleeding/ Discharge, Vaginal Discharge, Nausea, Vomiting(# Of Episodes =), Genital Swelling - Allergies/Home Medications Allergies/Adverse Reactions: Allergies Allergy/AdvReac Type Severity Reaction Status Date / Time No Known Allergies Allergy Verified 12/04/18 19:26 PMH/Surg Hx/FS Hx/Imm Hx Previously Healthy: Yes Other History Of: Negative For: Anticoagulant Therapy - Surgical History Surgical History: Yes Surgery Procedure, Year, and Place: cholecystectomy - Family History Known Family History: Positive: Hypertension, Respiratory Disease - Social History Alcohol Use: None Substance Use Type: None Smoking Status (MU): Never Smoked Tobacco Have You Smoked in the Last Year: No Review of Systems All Other Systems Reviewed And Are Negative: Yes Constitutional: Positive: Negative Skin: Positive: Negative Eyes: Positive: Negative ENT: Positive: Negative Respiratory: Positive: Negative Cardiovascular: Positive: Negative Gastrointestinal: Positive: Negative Genitourinary: Positive: Dysuria, Frequency, Urgency Motor: Positive: Negative Neurovascular: Positive: Negative Musculoskeletal: Positive: Negative Neurological: Positive: Negative Psychological: Positive: Negative Physical Exam Triage Information Reviewed: Yes Appearance: Well-Appearing, No Pain Distress, Well-Nourished Vital Signs: Initial Vital Signs Temp 97.6 F 12/04/18 19:24 Pulse 76 12/04/18 19:24 Resp 15 12/04/18 19:24 BP 132/88 12/04/18 19:24 Pulse Ox 100 12/04/18 19:24 Vital Signs Reviewed: Yes Eyes: Positive: Conjunctiva Clear ENT: Positive: Hearing grossly normal. Negative: Nasal congestion, Nasal drainage, Trismus, Muffled voice, Hoarse voice Neck: Positive: Supple, Nontender, No Lymphadenopathy Respiratory: Positive: Lungs clear, Normal breath sounds, No respiratory distress, No accessory muscle use Cardiovascular: Positive: RRR, No Murmur Abdomen Description: Positive: Nontender, No Organomegaly, Soft. Negative: CVA Tenderness (R), CVA Tenderness (L) Bowel Sounds: Positive: Present Musculoskeletal: Positive: ROM Intact, No Edema Neurological: Positive: Alert Psychological Exam: Normal Skin Exam: Normal Diagnostics - Laboratory Lab Results: UA: + leuks, + RBCs Complaint Female Dx - Differential Dx/Diagnosis Provider Diagnosis: UTI (urinary tract infection), Elevated BP without diagnosis of hypertension Discharge ED - Sign-Out/Discharge Documenting (check all that apply): Patient Departure All imaging exams completed and their final reports reviewed: No Studies - Discharge Plan Condition: Stable Disposition: HOME Prescriptions: Nitrofurantoin Monohyd/M-Cryst [Macrobid 100 mg Capsule] 100 mg PO BID #14 cap Phenazopyridine TAB* [Pyridium TAB*] 100 mg PO TID #6 tab Patient Education Materials: Urinary Tract Infection in Women (DC) Referrals: Jenn Ramírez MD [Primary Care Provider] - 3 Days (if not better) - Billing Disposition and Condition Condition: STABLE Disposition: Home
[2018-12-04] MEDS ORDERED: Phenazopyridine TAB* 100 MG PO ONE (19:38)
[2018-12-04] MEDS ORDERED: Sulfamethox/Trimethoprim DS 800/160* TAB PO ONE (19:38)
== END 2018-12-04 19:45 | disposition home or self-care (01) ==
LOC: UCCORT 18:59
DX: N39.0 Urinary tract infection, site not specified (principal); R30.0 Dysuria
CPT/HCPCS: 81003; 87077; 87086; 87186; 99212; A9270-GY; G0463

== ENCOUNTER 2018-12-15 12:56 | Emergency (ER) | payer BC ==
--- NOTE | 2018-12-15 14:28 | UC ---
Abdominal Pain Female HPI - HPI Summary HPI Summary: 38-year-old woman comes in with a chief complaint of abdominal pain. Last evening she felt left lower pelvic cramping feeling like her menses cramps. Pain was worse on the left side. Pain gradually moved up towards the left flank. No dysuria. Patient was recently treated with antibiotics for a UTI. She does have some abnormal vaginal discharge which she believes is a yeast infection and she is treating that with Monistat. Patient reports normal bowel movements normal appetite. Pain is worse 6 out of 10 right now it's about a 4 out of 10. Pain is worse with palpation and the movement of sitting up. No fevers or chills. Patient has had her gallbladder out in the past she still has her appendix. No prior history of ovarian cysts. Patient has 2 children. - History of Current Complaint Chief Complaint: UCGeneralIllness Stated Complaint: ABD PAIN Time Seen by Provider: 12/15/18 13:12 Hx Last Menstrual Period: 11/26/18 Pain Intensity: 4 Allergies/Adverse Reactions: Allergies Allergy/AdvReac Type Severity Reaction Status Date / Time No Known Allergies Allergy Verified 12/15/18 13:06 Home Medications: Home Medications Amlodipine Besylate/Benazepril [Amlodipine-Benazepril 2.5-10] 1 each PO DAILY [History Confirmed 12/15/18] DULoxetine DR CAP* [Cymbalta CAP*] 60 mg PO DAILY 12/15/18 [History Confirmed ] Propranolol TAB* [Inderal TAB*] 20 mg PO DAILY 12/15/18 [History Confirmed 12/15] buPROPion TAB* [Wellbutrin TAB*] 300 mg PO DAILY 12/15/18 [History Confirmed ] PMH/Surg Hx/FS Hx/Imm Hx Previously Healthy: Yes Cardiovascular History: Hypertension Other History Of: Negative For: Anticoagulant Therapy - Surgical History Surgical History: Yes Surgery Procedure, Year, and Place: cholecystectomy - Family History Known Family History: Positive: Hypertension, Respiratory Disease - Social History Alcohol Use: None Substance Use Type: None Smoking Status (MU): Never Smoked Tobacco Have You Smoked in the Last Year: No Review of Systems All Other Systems Reviewed And Are Negative: Yes Constitutional: Positive: Negative Skin: Positive: Negative Eyes: Positive: Negative ENT: Positive: Negative Respiratory: Positive: Negative Cardiovascular: Positive: Negative Gastrointestinal: Positive: Abdominal Pain Genitourinary: Positive: Vaginal/Penile Discharge. Negative: Dysuria Motor: Positive: Negative Neurovascular: Positive: Negative Musculoskeletal: Positive: Negative Neurological: Positive: Negative Psychological: Positive: Negative Is Patient Immunocompromised?: No Physical Exam Triage Information Reviewed: Yes Appearance: Well-Appearing, Well-Nourished, Pain Distress - MILD WITH EXAM Vital Signs: Initial Vital Signs Temp 97.7 F 12/15/18 13:02 Pulse 80 12/15/18 13:02 Resp 20 12/15/18 13:02 BP 113/69 12/15/18 13:02 Pulse Ox 99 12/15/18 13:02 Vital Signs Reviewed: Yes Eye Exam: Normal Eyes: Positive: Conjunctiva Clear Neck: Positive: Supple Respiratory: Positive: Lungs clear, Normal breath sounds, No respiratory distress Cardiovascular: Positive: RRR Abdomen Description: Positive: Other: - There is mild tenderness to palpation in the left lower quadrant and the left lateral abdomen. No CVA tenderness to percussion. No rebound. No right-sided abdominal tenderness to palpation.. Negative: CVA Tenderness (R), CVA Tenderness (L) Bowel Sounds: Positive: Present Musculoskeletal: Positive: Strength Intact, ROM Intact Neurological: Positive: Alert, Muscle Tone Normal Psychological: Positive: Normal Response To Family, Age Appropriate Behavior Skin Exam: Normal Abd Pain Female Course/Dx - Course Course Of Treatment: Speech Language Pathologist Prn: Alvin Montague Daniel, ([id number]) Packaging Machine Operator: YADIEL ( YADIEL) Report Date: 12/15/2018 13:45:00 Report Status: Final ====== Start of Report Content Patient Name: MITCH FUNES Medical Record#: [id number] Ordering Physician: Donn Dai MD Acct.#: [id number] : Age: 38 Sex: F Location: [facility] Exam Date: 12/15/18 1345 ADM Status: REG ER Order Information: US TRANSVAGINAL Accession Number: [id number] CPT: 25210 HISTORY: LEFT PELVIC PAIN SINCE LAST PM COMPARISONS: None relevant available at the time of dictation. TECHNIQUE: Multiple transverse and longitudinal ultrasound images were obtained of the pelvis using grayscale, color Doppler, and spectral Doppler imaging using the endovaginal transducer. FINDINGS: UTERUS: The uterus measures 10.6 cm x 4.3 cm x 5.9 cm. There are multiple uterine fibroids, largest in the left lateral uterine body measuring up to 5.1 cm. ENDOMETRIUM: The endometrial stripe is smooth. The endometrium measures 0.6 cm in thickness. CUL-DE-SAC: There is no free fluid within the cul-de-sac. RIGHT OVARY: The right ovary measures 1.8 cm x 1.9 cm x 2.4 cm. Normal arterial and venous waveforms are identifiable within the ovary on spectral Doppler imaging. LEFT OVARY: The left ovary measures 1.6 cm x 2.0 cm x 3.0 cm. Evaluation of the left left ovary is limited by the fibroid uterus. The ovaries normal in size. Color and spectral flow is not detectable. BLADDER: The bladder is not well visualized. OTHER: None IMPRESSION: 1. FIBROID UTERUS. 2. EVALUATION OF THE LEFT OVARY IS LIMITED. THE LEFT OVARY IS NORMAL IN SIZE, THOUGH COLOR AND SPECTRAL FLOW IS NOT DETECTABLE WITHIN THE OVARY, WHICH MAY BE AN ARTIFACT OF THE TECHNICAL LIMITATIONS OF THE STUDY. <Electronically signed by Alvin Montague MD in OV> 12/15/18 1504 Dictated By: Alvin Montague MD Dictated Date/Time: 12/15/18 1502 Transcribed Date/Time: 12/15/18 1502 Copy to: CC:Jenn Ramírez MD; Donn aDi MD Imaging - [facility] Imaging - [facility] [address] [address] ph [phone]) ph ([phone]) [phone]) End of Report Content Urinalysis shows 2+ leukocytes otherwise normal. Urine test negative. Urine gonorrhea and chlamydia results are pending. Affirm is pending. I discussed the ultrasound report with the MERCHANDISE ADJUSTMENT CLERK on-call Dr. Robles. Left ovary is normal in size but no blood flow is seen. Patient does have a fibroid on the left side which may be obscuring the blood flow however I cannot confirm blood flow in the ovary at this time which brings up the probability of ovarian torsion. I discussed this all with the patient and recommended going to the emergency department. Patient will go by POV to the [facility] emergency department. I discussed with the patient's going to [facility] emergency department with Dr. Robles and also with the emergency department charge nurse. - Differential Dx/Diagnosis Provider Diagnosis: Pelvic pain, Left sided abdominal pain Discharge ED - Sign-Out/Discharge Documenting (check all that apply): Patient Departure All imaging exams completed and their final reports reviewed: Yes - Discharge Plan Condition: Stable Disposition: HOME-RECOMMEND TO ED Referrals: Jenn Ramírez MD [Primary Care Provider] - Jake Robles MD [Medical Doctor] - Additional Instructions: GO DIRECTLY TO THE EMERGENCY DEPARTMENT FOR FURTHER EVALUATION AND CARE FOR LEFT SIDED PELVIC/ABDOMINAL PAIN AND POSSIBLE OVARIAN TORSION. I spoke with the MERCHANDISE ADJUSTMENT CLERK on-call Dr. Robles and he is aware of your case. - Billing Disposition and Condition Condition: STABLE Disposition: Home-Recommend to ED
[2018-12-15 15:55] VITALS: BP 116/82
[2018-12-16 12:49] LABS: Chlamydia trachomatis NAA Negative (Negative); Neisseria gonorrhoeae (GC) NAA Negative (Negative)
== END 2018-12-15 15:55 | disposition home health service (06) ==
LOC: UCCORT 12:56
DX: R10.2 Pelvic and perineal pain (principal); R10.9 Unspecified abdominal pain; D25.9 Leiomyoma of uterus, unspecified; N89.8 Other specified noninflammatory disorders of vagina
CPT/HCPCS: 76830; 81003; 84702; 87086; 87491; 87591; 99212; G0463

== ENCOUNTER 2018-12-15 17:03 | Emergency (ER) | payer BC ==
--- NOTE | 2018-12-15 17:20 | ED ---
Abdominal Pain/Female - HPI Summary HPI Summary: This pt is a 38 y/o female presenting to [facility] referred from [facility] for left lower abd pain since 2 days ago. Pt reports initially 2 days ago she had abdominal cramps. Yesterday pt notes her pain was worse and last night she had sharp pain. Currently she notes a dull ache pain to the left lower side of her abdomen. Denies fever, chills nausea, vomiting, vaginal bleeding. She reports she had a UTI last week. Pt has 2 children. She went to Urgent Care where she had an ultrasound and was sent to the ED to rule out left ovarian torsion. Neg Upreg at Pt last ate a cookie this morning, NPO since am. PSHx cholecystectomy. Denies any PMHx. Denies any hx ovarian cysts. - History of Current Complaint Stated Complaint: POSS OVARIAN TORTION PER PT Time Seen by Provider: 12/15/18 17:06 Hx Obtained From: Patient Hx Last Menstrual Period: 11/26/18 Onset/Duration: Lasting Days, Still Present Timing: Days Severity Currently: Mild Pain Intensity: 1 Pain Scale Used: 0-10 Numeric Location: Other - left lower abd Radiates: No Aggravating Factor(s): Nothing Alleviating Factor(s): Nothing Associated Signs and Symptoms: Negative: Fever, Vaginal Bleeding, Nausea, Vomiting Allergies/Adverse Reactions: Allergies Allergy/AdvReac Type Severity Reaction Status Date / Time No Known Allergies Allergy Verified 12/15/18 13:06 PMH/Surg Hx/FS Hx/Imm Hx Endocrine/Hematology History: Denies: Hx Anticoagulant Therapy, Hx Diabetes, Hx Thyroid Disease Cardiovascular History: Denies: Hx Hypertension Respiratory History: Reports: Hx Asthma - childhood only Denies: Hx Chronic Obstructive Pulmonary Disease (COPD) GI History: Denies: Hx Ulcer - Surgical History Surgical History: Yes Surgery Procedure, Year, and Place: cholecystectomy Infectious Disease History: No Infectious Disease History: Reports: Hx Shingles - 2012 Denies: Hx Hepatitis, Hx Human Immunodeficiency Virus (HIV), Traveled Outside the [place] in Last 30 Days - Family History Known Family History: Positive: Hypertension, Respiratory Disease - Social History Alcohol Use: None Substance Use Type: Reports: None Smoking Status (MU): Never Smoked Tobacco Have You Smoked in the Last Year: No Review of Systems Negative: Fever Positive: Abdominal Pain. Negative: Vomiting Negative: other - NEGATIVE: vaginal bleeding All Other Systems Reviewed And Are Negative: Yes Physical Exam - Summary Physical Exam Summary: Constitutional: Well-developed, Well-nourished, Alert. (-) Distressed Skin: Warm, Dry HENT: Normocephalic; Atraumatic Eyes: Conjunctiva normal Neck: Musculoskeletal ROM normal neck. (-) JVD, (-) Stridor Cardio: Rhythm regular, rate normal, Heart sounds normal; Intact distal pulses; Radial pulses are 2+ and symmetric. (-) Murmur Pulmonary/Chest wall: Effort normal. (-) Respiratory distress, (-) Wheezes, (-) Rales Abd: Soft, mild left lower quadrant tenderness, (-) Distension, (-) Guarding, (- ) Rebound Musculoskeletal: (-) Edema Lymph: (-) Cervical adenopathy Neuro: Alert, Oriented x3 Psych: Mood and affect Normal Triage Information Reviewed: Yes Vital Signs On Initial Exam: Initial Vitals Temp Pulse Resp BP Pulse Ox 97.1 F 82 18 122/90 100 12/15/18 17:10 12/15/18 17:10 12/15/18 17:10 12/15/18 17:10 12/15/18 17:10 Vital Signs Reviewed: Yes Procedures - Sedation Patient Received Moderate/Deep Sedation with Procedure: No Diagnostics - Vital Signs Vital Signs Temp Pulse Resp BP Pulse Ox 12/15/18 17:10 97.1 F 82 18 122/90 100 - Laboratory Lab Statement: Any lab studies that have been ordered have been reviewed, and results considered in the medical decision making process. - Ultrasound No standard instances Ultrasound Interpretation Completed By: Radiologist Summary of Ultrasound Findings: Transvaginal US IMPRESSION (done at Urgent Care) : 1. Fibroid uterus. 2. Evaluation of the left ovary is limited. The left ovary is normal in size, though color and spectral flow is not detectable within the ovary, which may be an artifact of the technical limitations of the study. Dr. Clemons has reviewed this report. Re-Evaluation - Re-Evaluation First Eval Re-Evaluation Time: 18:02 Comment: Dr. Robles, [employer], reports pt can be discharged home and will follow up with him on 12/19/18. He states he is low suspicion for ovarian torsion is having good well appearance and minimal tenderness on exam. Discussed w the patient discharge, she is comfortable and will follow-up in his office Abdominal Pain Fem Course/Dx - Course Course Of Treatment: 30-year-old female presents with left lower quadrant abdominal pain, found to have abnormal transvaginal ultrasound with concern for torsion. Dr. Robles of [facility] aware of patient. On arrival to ED, patient is in NAD, abdomen is benign with only minimal tenderness, no guarding. Lower suspicion for torsion, will have OB evaluate - Diagnoses Provider Diagnoses: Left lower quadrant abdominal pain - Provider Notifications Discussed Care Of Patient With: Jake Robles Time Discussed With Above Provider: 17:19 Instructed by Provider To: Other - Discussed with Dr. Robles, [facility], who reports he is coming to see pt in the ED. Discharge ED - Sign-Out/Discharge Documenting (check all that apply): Patient Departure - Discharge home - Discharge Plan Condition: Stable Disposition: HOME Patient Education Materials: Abdominal Pain (ED) Referrals: Jenn Ramírez MD [Primary Care Provider] - Jake Robles MD [Medical Doctor] - (Call his office tomorrow and schedule an appointment on Wednesday12/19/18.) Additional Instructions: You were seen in the emergency department for lower abdominal pain. Your ultrasound was concerning for decreased blood flow to left ovary however on exam our dipper clock and watch hands had lower suspicion for ovarian torsion. If any studies were not completed at the time of discharge you will be called with the relevant results. Please follow up with your primary care doctor in next 2-3 days and return to emergency department for worsening abdominal pain, fevers, vomiting or concerning symptoms. It was a pleasure taking care of you today. - Billing Disposition and Condition Condition: STABLE Disposition: Home - Attestation Statements Document Initiated by Pravin: Yes Documenting Scribe: Gisell Cantrell Provider For Whom Pravin is Documenting (Include Credential): eSrvando Clemons MD Scribe Attestation: I, Gisell Cantrell, scribed for Servando Clemons MD on 12/15/18 at 1809. Scribe Documentation Reviewed: Yes Provider Attestation: The documentation as recorded by the Gisell gandhi accurately reflects the service I personally performed and the decisions made by me, Servando Clemons MD Status of Scribe Document: Viewed
[2018-12-15 18:18] VITALS: BP 120/78
--- NOTE | 2018-12-15 18:20 | PN ---
Progress Note - Progress Note Date of Service: 12/15/18 SOAP: Subjective: [38 yo seen by [facility] armin maldonado and history of 2 days of crampy left lower quadrant pain. Pt is midcycle. pain started on Wednesday night . It was sharp and more painful yesterday and has improved since. It is now just an ache. no nausea vomiting diarrhea constipation or trouble urinating. no fever] Objective: [vss afebrile abdomen soft + bowel sounds/ mild tenderness in the left upper and lower quadrant . no pain in the right. no rebound no guarding ultrasound shows multiple fibroid with a very heterogeneous appearance to her uterus.Right ovary normal.Left ovary much less well seen but appears normal in size . No flow seen on that side/ largest fibroid on the left side] Assessment: [possible fibroid degeneration./ possible mittleschmirz/possible torsion ] Plan: [Discussed natural history of torsion at length so she understands if it is she may lose that ovary . delay could make her surgery more complicated if it is a torsion however clinically she is quite stable and surgery may be more risky than waiting. Pt in agreemnet in monitoring her pain / use of ibuprofen with follow up on Wednesday in the office She should return to the er if pain worsens. Questions answered . discussed laparoscopy Risks/ discussed fibroid pain. ]
== END 2018-12-15 18:17 | disposition home or self-care (01) ==
LOC: ED 17:03
DX: R10.32 Left lower quadrant pain (principal)
CPT/HCPCS: 99282

== ENCOUNTER 2019-01-29 17:35 | Emergency (ER) | payer BC ==
--- NOTE | 2019-01-29 17:58 | UC ---
Complaint Female HPI - HPI Summary HPI Summary: 38 yo female presents with UTI symptoms. She tells me that over the past 5-6 days she has had urinary frequency, bladder discomfort, and occasional burning during urination. She states that she gets UTIs frequently and has seen Urology in the past, but not recently - nothing ever came of her visits there. She denies fever, chills, abdominal pain, n/v, flank pain, vaginal bleeding or discharge - History Of Current Complaint Stated Complaint: URINARY COMPLAINT Time Seen by Provider: 01/29/19 17:56 Hx Obtained From: Patient Hx Last Menstrual Period: 11/26/18 Onset/Duration: Gradual Onset Severity Initially: Mild Severity Currently: Mild Pain Intensity: 4 Pain Scale Used: 0-10 Numeric - Allergies/Home Medications Allergies/Adverse Reactions: Allergies Allergy/AdvReac Type Severity Reaction Status Date / Time No Known Allergies Allergy Verified 01/29/19 18:04 PMH/Surg Hx/FS Hx/Imm Hx Cardiovascular History: Hypertension Psychological History: Anxiety, Depression Other History Of: Negative For: Anticoagulant Therapy - Surgical History Surgical History: Yes Surgery Procedure, Year, and Place: cholecystectomy - Family History Known Family History: Positive: Hypertension, Respiratory Disease - Social History Occupation: Employed Full-time Lives: With Family Alcohol Use: None Substance Use Type: None Smoking Status (MU): Never Smoked Tobacco Have You Smoked in the Last Year: No Review of Systems All Other Systems Reviewed And Are Negative: No Constitutional: Positive: Negative Skin: Positive: Negative Respiratory: Positive: Negative Cardiovascular: Positive: Negative Gastrointestinal: Positive: Negative Genitourinary: Positive: Dysuria Neurological: Positive: Negative Psychological: Positive: Negative Physical Exam - Summary Physical Exam Summary: GENERAL: NAD. WDWN. No pain distress. SKIN: No rashes, sores, lesions, or open wounds. NECK: Supple. Nontender. No lymphadenopathy. CHEST: CTAB. No r/r/w. No accessory muscle use. Breathing comfortably and in no distress. CV: RRR. Pulses intact. Cap refill <2seconds ABDOMEN: Soft. NTTP. No distention or guarding. No CVA tenderness. Bowel sounds present NEURO: Alert. PSYCH: Age appropriate behavior. Triage Information Reviewed: Yes Vital Signs: Vital Signs: Temp Pulse Resp BP Pulse Ox 97.7 F 81 16 108/66 99 01/29/19 18:01 01/29/19 18:01 01/29/19 18:01 01/29/19 18:01 01/29/19 18:01 Laboratory Tests 01/29/19 18:09 POC Urine Color Yellow POC Urine Clarity Cloudy POC Urine pH 6.5 POC Ur Specif [place] 1.020 POC Urine Protein 1+ A POC Ur Glucose (UA) Negative POC Urine Ketones Trace POC Urine Blood Trace-intact POC Urine Nitrite Negative POC Urine Bilirubin Negative POC Urine Urobilinogen 0.2 POC U Leukocyte Esteras 1+ A Vital Signs Reviewed: Yes Complaint Female Dx - Course Course Of Treatment: UA positive. Will send urine for culture and treat with keflex. Last UTI was 12/05 and urine culture final report does not show any anbx resistance. - Differential Dx/Diagnosis Provider Diagnosis: UTI (urinary tract infection) Discharge ED - Sign-Out/Discharge Documenting (check all that apply): Patient Departure All imaging exams completed and their final reports reviewed: No Studies - Discharge Plan Condition: Stable Disposition: HOME Prescriptions: Cephalexin CAP* [Keflex CAP*] 500 mg PO BID #10 cap Patient Education Materials: Urinary Tract Infection in Women (ED) Referrals: Jenn Ramírez MD [Primary Care Provider] - Additional Instructions: If you develop a fever, shortness of breath, chest pain, new or worsening symptoms - please call your PCP or go to the ED immediately. - Billing Disposition and Condition Condition: STABLE Disposition: Home
--- OUTSIDE RECORDS SUMMARY | 2019-01-29 18:00 | XMS REPORT | Continuity of Care Document ---
:1980 External Reference #:[id number] Author Name Jake Robles M.D. Address [address] [place] [id number] Care Team Providers Name Role Phone Jenn Lujan Care Team Information Ceiling Insulation Blower [phone] Problems Description No Information Available Social History Type Date Description Comments Sex Unknown Tobacco Use Start: Unknown Never Smoked Cigarettes Recreational Drug Use Denies Drug Use Tobacco Use Start: Unknown Patient has never smoked Smoking Status Reviewed: 12/19/18 Patient has never smoked Exercise Type/Frequency Does not exercise Seat Belt/Car Seat Always uses seat belt Allergies, Adverse Reactions, Alerts Description No Known Drug Allergies Medications Active Medications SIG Qnty Indications Ordering Provider Date Propranolol HCL Unknown Bupropion Hydrochloride ER (XL) Unknown Duloxetine HCL Unknown Amlodipine Besylate Unknown Medications Administered in Office Medication SIG Qnty Indications Ordering Provider Date PT SCRN Tbco Id as Non User Jake Robles M.D. 12/19/2018 Injection Immunizations Description No Information Available Vital Signs Date Vital Result Comment 12/19/2018 9:10am BP Systolic 132 mmHg BP Diastolic 90 mmHg Height 66 inches 5'6" Weight 272.00 lb BMI (Body Mass Index) 43.9 kg/m2 Last Menstrual Period [id number] 3 Parity 2 Results Description No Information Available Procedures Description No Information Available Medical Devices Description No Information Available Encounters Type Date Location Provider Dx Diagnosis Office Visit 12/19/2018 [facility] Jake Robles, R10.2 Pelvic and perineal 9:20a M.D. pain D25.9 Leiomyoma of uterus, unspecified Assessments Date Code Description Provider 12/19/2018 R10.2 Pelvic and perineal pain Jake Robles M.D. 12/19/2018 D25.9 Leiomyoma of uterus, unspecified Jake Robles M.D. Plan of Treatment Future Appointment(s):01/10/2019 2:00 pm - Jake Robles M.D. 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
[2019-01-29 18:03] VITALS: BP 108/66
[2019-01-29] MEDS ORDERED: Cephalexin CAP* 500 MG PO ONE (18:14)
--- NOTE | 2019-02-01 07:00 | UC ---
- Progress Note Progress Note: please notify patient no UTI stop antibiotic recheck if still symptomatic Course/Dx - Diagnoses Provider Diagnoses: UTI (urinary tract infection) Discharge ED - Sign-Out/Discharge Documenting (check all that apply): Post-Discharge Follow Up All imaging exams completed and their final reports reviewed: No Studies - Discharge Plan Condition: Stable Disposition: HOME Prescriptions: Cephalexin CAP* [Keflex CAP*] 500 mg PO BID #10 cap Patient Education Materials: Urinary Tract Infection in Women (ED) Referrals: Jenn Ramírez MD [Primary Care Provider] - Additional Instructions: If you develop a fever, shortness of breath, chest pain, new or worsening symptoms - please call your PCP or go to the ED immediately. - Billing Disposition and Condition Condition: STABLE Disposition: Home
== END 2019-01-29 18:20 | disposition home or self-care (01) ==
LOC: UCCORT 17:35
DX: N39.0 Urinary tract infection, site not specified (principal); I10 Essential (primary) hypertension; Z82.49 Family history of ischemic heart disease and other diseases of the circulatory system
CPT/HCPCS: 81003; 87086; 99212; A9270-GY; G0463

== ENCOUNTER 2019-02-10 11:53 | Emergency (ER) | payer BC ==
[2019-02-10 14:06] VITALS: BP 120/72
--- NOTE | 2019-02-10 14:17 | UC ---
Throat Pain/Nasal Luis Armando HPI - HPI Summary HPI Summary: 38-year-old female comes in with chief complaint of 4-5 days of upper respiratory tract infection symptoms. She has green rhinorrhea and sinus pressure. She has a little bit of a scratchy throat. No complaint of any cough or shortness of breath. She did try some [id number] medications which did did help some but overall she's getting worse. - History of Current Complaint Chief Complaint: UCGeneralIllness Stated Complaint: SINUS CONCERN Time Seen by Provider: 02/10/19 14:11 Hx Last Menstrual Period: 02/06/19 Pain Intensity: 0 - Allergies/Home Medications Allergies/Adverse Reactions: Allergies Allergy/AdvReac Type Severity Reaction Status Date / Time No Known Allergies Allergy Verified 02/10/19 14:01 Home Medications: Home Medications Guaifen/Phenyleph/Acetaminophn [Tylenol Sinus Severe Caplet] 2 tab PO ONCE 02/10 [History Confirmed 02/10/19] PMH/Surg Hx/FS Hx/Imm Hx Previously Healthy: Yes Cardiovascular History: Hypertension Other History Of: Negative For: Anticoagulant Therapy - Surgical History Surgical History: Yes Surgery Procedure, Year, and Place: cholecystectomy - Family History Known Family History: Positive: Hypertension, Respiratory Disease - Social History Alcohol Use: None Substance Use Type: None Smoking Status (MU): Never Smoked Tobacco Have You Smoked in the Last Year: No Review of Systems All Other Systems Reviewed And Are Negative: Yes Constitutional: Positive: Negative Skin: Positive: Negative Eyes: Positive: Negative ENT: Positive: Sore Throat, Nasal Discharge, Sinus Congestion, Sinus Pain/ Tenderness Respiratory: Positive: Negative Cardiovascular: Positive: Negative Gastrointestinal: Positive: Negative Motor: Positive: Negative Neurovascular: Positive: Negative Musculoskeletal: Positive: Negative Neurological: Positive: Negative Psychological: Positive: Negative Is Patient Immunocompromised?: No Physical Exam Triage Information Reviewed: Yes Appearance: No Pain Distress, Well-Nourished, Ill-Appearing - mild Vital Signs: Initial Vital Signs Temp 97.4 F 02/10/19 14:02 Pulse 85 02/10/19 14:02 Resp 14 02/10/19 14:02 BP 120/72 02/10/19 14:02 Pulse Ox 99 02/10/19 14:02 Vital Signs Reviewed: Yes Eye Exam: Normal Eyes: Positive: Conjunctiva Clear ENT: Positive: Pharyngeal erythema, Nasal congestion, Nasal drainage, TMs normal Neck: Positive: Supple Respiratory: Positive: Lungs clear, Normal breath sounds, No respiratory distress Cardiovascular: Positive: RRR Musculoskeletal: Positive: Strength Intact, ROM Intact Neurological: Positive: Alert, Muscle Tone Normal Psychological: Positive: Age Appropriate Behavior Skin Exam: Normal Throat Pain/Nasal Course/Dx - Course Course Of Treatment: DISCUSSED VIRAL VERSES BACTERIAL INFECTIONS AND THE ROLE OF ANTIBIOTICS. THE PATIENT PREFERS TO BE ON ANTIBIOTICS AT THIS TIME. - Differential Dx/Diagnosis Provider Diagnosis: Sinusitis Discharge ED - Sign-Out/Discharge Documenting (check all that apply): Patient Departure All imaging exams completed and their final reports reviewed: No Studies - Discharge Plan Condition: Stable Disposition: HOME Prescriptions: Amoxicillin PO (*) [Amoxicillin 875 MG (*)] 875 mg PO BID #20 tab Fluticasone NASAL SPRAY 50MCG* [Flonase NASAL SPRAY 50MCG*] 2 spray BOTH NARES DAILY #1 btl Patient Education Materials: Sinusitis (ED) Referrals: Jenn Ramírez MD [Primary Care Provider] - Additional Instructions: FOLLOW UP WITH YOUR DOCTOR IF NOT COMPLETELY IMPROVED. GET REEVALUATED SOONER IF NOT IMPROVING OR WORSE OR ANY QUESTIONS OR CONCERNS. - Billing Disposition and Condition Condition: STABLE Disposition: Home
== END 2019-02-10 14:23 | disposition home or self-care (01) ==
LOC: UCCORT 11:53
DX: J32.9 Chronic sinusitis, unspecified (principal); I10 Essential (primary) hypertension
CPT/HCPCS: 99212; G0463